=== PATIENT | female | born 1955 | race Caucasian/White ===

== ENCOUNTER 2017-08-15 12:13 | Emergency (ER) | payer MEDICAID ==
[2017-08-15 12:55] VITALS: TEMP 97.6; O2SAT 99; BMI 38.4
--- NOTE | 2017-08-15 13:12 | ED PDOC ---
Arrival/HPI - General Chief Complaint: Upper Extremity Problem/Injury Time Seen by Provider: 08/15/17 12:37 Historian: Patient - History of Present Illness Narrative History of Present Illness (Text): 08/15/17 13:03 A 62 year old female, whose past medical history includes a stented coronary artery, diabetes mellitus, hypercholestermia, and cervical radiculopathy, presents to the emergency department for a left upper extremity injury, which occurred 1 hr prior to arrival. The patient reports she slip and fell in her bathroom, she states it was a mechanical fall and denies any head injuries. The patient denies any fever, nausea, headaches, or any other complaints at this time. Time/Duration: 1 hour Symptom Onset: Sudden Symptom Course: Unchanged Activities at Onset: Light Context: Home Past Medical History - Provider Review Nursing Documentation Reviewed: Yes - Past History Past History: No Previous - Infectious Disease Hx of Infectious Diseases: None - Tetanus Immunization Tetanus Immunization: Up to Date - Cardiac Hx Cardiac Disorders: Yes Hx Hypertension: Yes Other/Comment: stents - Pulmonary Hx Respiratory Disorders: No - Neurological Hx Neurological Disorder: No - HEENT Hx HEENT Disorder: No - Renal Hx Renal Disorder: No - Endocrine/Metabolic Hx Endocrine Disorders: Yes Hx Diabetes Mellitus Type 2: Yes - Hematological/Oncological Hx Blood Disorders: No - Integumentary Hx Dermatological Disorder: No - Musculoskeletal/Rheumatological Hx Falls: Yes - Gastrointestinal Hx Gastrointestinal Disorders: No - Genitourinary/Gynecological Hx Genitourinary Disorders: No - Psychiatric Hx Psychophysiologic Disorder: No Hx Substance Use: No - Surgical History Hx Gastric Bypass Surgery: Yes (06/05/2016) Hx Orthopedic Surgery: Yes (Knee Arthroplasty R) Hx Tonsillectomy: Yes - Anesthesia Hx Anesthesia: Yes Hx Anesthesia Reactions: No Hx Malignant Hyperthermia: No - Suicidal Assessment Feels Threatened In Home Enviroment: No Family/Social History - Physician Review Nursing Documentation Reviewed: Yes Family/Social History: Unknown Family HX Smoking Status: Never Smoked Hx Alcohol Use: No Hx Substance Use: No Hx Substance Use Treatment: No Allergies/Home Meds Allergies/Adverse Reactions: Allergies No Known Allergies Allergy (Verified 03/31/13 22:07) Home Medications: Home Meds Medication Instructions Recorded Confirmed Insulin Glargine, Recombina 5 units SC DAILY 08/15/17 08/15/17 [Lantus] Physical Exam - Physical Exam Narrative Physical Exam (Text): 08/15/17 13:00 - Review of Systems Constitutional: Normal. absent: Fatigue, Weight Change, Fevers Eyes: Normal ENT: denies sore throat, denies tristhmus Respiratory: Normal. absent: SOB, Cough, Sputum Cardiovascular: absent: Chest Pain, Palpitations, Syncope Gastrointestinal: Normal. absent: Abdominal Pain, Diarrhea, Nausea, Vomiting Genitourinary: Normal. absent: Dysuria, Frequency, Hematuria Musculoskeletal: Normal. absent: Arthralgias, Back Pain, Neck Pain Skin: no rashes, no erythema Neurological: absent: Focal Weakness Endocrine: Normal Hemo/Lymphatic: Normal Psychiatric: No suicidal or homicidal ideations Physical exam Patient appears age appropriate in no distress, speaking full sentences without difficulty Head atraumatic. No nasal bone deformity or tenderness, no facial or jaw pain/ swelling. No neck midline tenderness, thoracic and lumbar spine with no midline tenderness. Pt moving b/l upper and lower extremities without difficulty, 5/5 strength, with full active and passive ROM. Distal neurovasc fully intact. Abd soft/nt/nd, no hematomas, no peritoneal signs. Neg. pelvic rock. No snuff box tenderness, no pain with axial loading of the thumb. - Systems Exam Head: Present: Atraumatic, Normocephalic Pupils: Present: PERRL Extroacular Muscles: Present: EOMI Conjunctiva: Present: Normal Mouth: Present: Moist Mucous Membranes Neck: Present: Normal Range of Motion. No: MIDLINE TENDERNESS, Paraspinal Tenderness Respiratory/Chest: Present: Clear to Auscultation, Good Air Exchange. No: Respiratory Distress, Accessory Muscle Use, Tachypneic Cardiovascular: Present: Regular Rate and Rhythm, Normal S1, S2, Peripheal Pulses Present. No: Murmurs Abdomen: Present: Normal Bowel Sounds. No: Tenderness, Distention, Peritoneal Signs, Rebound, Guarding Back: Present: Normal Inspection. No: Midline Tenderness, Paraspinal Tenderness Upper Extremity: Present: L. Shoulder, elbow, hand, and wrist full active and passive range with ROM and 5/5 strength. Normal Inspection. Distal neurovascular fully intact. No: Cyanosis, Edema. Lower Extremity: Present: Normal Inspection. No: Edema Neurological: Present: GCS=15, Speech Normal, cranial nerves II through XII fully intact with no cerebellar abnormality, neurosensory fully intact. No focal neurological deficits. Skin: Present: Warm, Dry, Normal Color. No: Rashes Lymphatic: Present: OX3, NI, NC Psychiatric: Present: Alert, Oriented x 3, Normal Insight, Normal Concentration Vital Signs Reviewed: Yes Vital Signs Temp Pulse Resp BP Pulse Ox 08/15/17 14:15 62 17 134/70 99 08/15/17 12:53 97.6 F 54 L 18 135/67 99 Temperature: Afebrile Blood Pressure: Normal Pulse: Bradycardic Respiratory Rate: Normal Appearance: Positive for: Well-Appearing, Non-Toxic, Comfortable Pain Distress: None Mental Status: Positive for: Alert and Oriented X 3 Medical Decision Making ED Course and Treatment: 08/15/17 13:23 Impression: A 62 year old female with left upper extremity pain due to fall. No acute findings on PE. Differential Diagnosis included but are not limited to: Sprain, strain, fracture Plan: -- Head CT -- Toradol -- Radiology: Left elbow, left shoulder, left wrist -- Reassess and disposition Progress Notes: 08/15/17 14:22 PROCEDURE: Left Wrist Radiographs. [employer] Consultant : Kayla Harding MD Report Date : 08/15/2017 14:02:12 FINDINGS: BONES:Bone alignment and mineralization are normal. There is no acute displaced fracture or bone destruction. There is an old fracture deformity in the styloid process of ulna. JOINTS:Normal. No dislocation. SOFT TISSUES:Normal. OTHER FINDINGS:None. IMPRESSION:No acute fracture or dislocation. PROCEDURE: Radiographs of the Left Shoulder [employer] Pay[employer] Consultant : Saul Lane MD Report Date : 08/15/2017 14:13:39 FINDINGS: BONES:Normal. No fracture. JOINTS:Normal. Glenohumeral and acromioclavicular joints preserved. No osteoarthritis. SOFT TISSUES:Normal. OTHER FINDINGS:None. IMPRESSION: Normal radiographs of the left shoulder. PROCEDURE: Radiographs of the left elbow. [employer] Pay[employer] Consultant : Saul Lane MD Report Date : 08/15/2017 14:12:37 FINDINGS: BONES:Normal. No fracture. JOINTS:Normal. No osteoarthritis. SOFT TISSUES:Normal. JOINT EFFUSION:None. OTHER FINDINGS:None IMPRESSION: Unremarkable radiographs of the left elbow. 08/15/17 15:11 had an extensive d/w pt that although xrays are negative for any acute bony abnormality, it is still very important to fu with pmd and ortho specialist for further w/u and testing such as MRI to r/o any ligamentous/tendenous/meniscal injury. Pt verbalized full understanding of above discussion. Pt states she understands to return to the ER right away for new or worsening symptoms or for inability to f/u with PMD or specialist as instructed. Patient states that she fully agrees with and understands discharge instructions. States that she agrees with the plan and disposition. Verbalized and repeated discharge instructions and plan. I have given the patient opportunity to ask any additional questions. 08/15/2017 14:45 CT HEAD WITHOUT CONTRAST. TECHNIQUE: Axial computed tomography images were obtained through the head/brain without intravenous contrast. Radiation dose: Total exam DLP = 941 mGy-cm. This CT exam was performed using one or more of the following dose reduction techniques: Automated exposure control, adjustment of the mA and/or kV according to patient size, and/or use of iterative reconstruction technique. FINDINGS: HEMORRHAGE: No intracranial hemorrhage. BRAIN: No mass effect or edema. No atrophy or chronic microvascular ischemic changes. VENTRICLES: Unremarkable. No hydrocephalus. CALVARIUM: Unremarkable. PARANASAL SINUSES: Unremarkable as visualized. No significant inflammatory changes. MASTOID AIR CELLS: Unremarkable as visualized. No inflammatory changes. OTHER FINDINGS: None. IMPRESSION: No acute findings Dictator: Saul Lane MD - RAD Interpretation Radiology Orders: 08/15/17 12:54 HEAD W/O CONTRAST [CT] Stat ELBOW LEFT 3 VIEWS ROUTINE [RAD] Stat SHOULDER LEFT [RAD] Stat WRIST, LEFT 3 VIEWS [RAD] Stat - Medication Orders Current Medication Orders: Discontinued Medications Ketorolac Tromethamine (Toradol) 30 mg IM STAT STA Stop: 08/15/17 12:55 Last Admin: 08/15/17 13:32 Dose: 30 mg MAR Pain Assessment Document 08/15/17 13:32 SF (Rec: 08/15/17 13:32 [place] [id number]) Pain Reassessment Is this a pain reassessment? Yes Sleep Is patient sleeping during reassessment? No Presence of Pain Presence of Pain Yes IM Administration Charges Document 08/15/17 13:32 SF (Rec: 08/15/17 13:32 [email or web address]) Injection Site MAR Injection Site Left Deltoid Charges for Administration # of IM Administrations 1 - Scribe Statement The provider has reviewed the documentation as recorded by the Scribe Na [place] Provider Scribe Attestation: All medical record entries made by the Scribe were at my direction and personally dictated by me. I have reviewed the chart and agree that the record accurately reflects my personal performance of the history, physical exam, medical decision making, and the department course for this patient. I have also personally directed, reviewed, and agree with the discharge instructions and disposition. Disposition/Present on Arrival - Present on Arrival Any Indicators Present on Arrival: No History of DVT/PE: No History of Uncontrolled Diabetes: No Urinary Catheter: No History of Decub. Ulcer: No History Surgical Site Infection Following: None - Disposition Have Diagnosis and Disposition been Completed?: Yes Diagnosis: Fall Disposition: HOME/ ROUTINE Disposition Time: 15:13 Patient Plan: Discharge Condition: GOOD Discharge Instructions (ExitCare): Fall Prevention for Older Adults (ED), Shoulder Sprain (ED) Additional Instructions: PLEASE RETURN TO THE EMERGENCY DEPARTMENT FOR NEW OR WORSENING SYMPTOMS. RETURN RIGHT AWAY IF YOU CANNOT FOLLOW UP WITH YOUR PRIMARY CARE DOCTOR, CLINIC, OR SPECIALIST IN 1-2 DAYS. Please take [id number] Motrin or Tylenol for pain per pharmacy instructions Referrals: Rancho Brink Jr., MD [Primary Care Provider] - Follow up with primary Vern Murdock MD [Staff Provider] - Follow up with primary Saul Gonzalez DO [Staff Provider] - Follow up with primary Forms: [employer] (Faroese)
--- NOTE | 2017-08-15 14:03 | RAD ---
PROCEDURE: Left Wrist Radiographs. HISTORY: Fall COMPARISON: None. FINDINGS: BONES: Bone alignment and mineralization are normal. There is no acute displaced fracture or bone destruction. There is an old fracture deformity in the styloid process of ulna. JOINTS: Normal. No dislocation. SOFT TISSUES: Normal. OTHER FINDINGS: None. IMPRESSION: No acute fracture or dislocation.
--- NOTE | 2017-08-15 14:14 | RAD ---
PROCEDURE: Radiographs of the left elbow. HISTORY: fall COMPARISON: No prior. FINDINGS: BONES: Normal. No fracture. JOINTS: Normal. No osteoarthritis. SOFT TISSUES: Normal. JOINT EFFUSION: None. OTHER FINDINGS: None IMPRESSION: Unremarkable radiographs of the left elbow.
--- NOTE | 2017-08-15 14:15 | RAD ---
PROCEDURE: Radiographs of the Left Shoulder HISTORY: fall COMPARISON: No prior. FINDINGS: BONES: Normal. No fracture. JOINTS: Normal. Glenohumeral and acromioclavicular joints preserved. No osteoarthritis. SOFT TISSUES: Normal. OTHER FINDINGS: None. IMPRESSION: Normal radiographs of the left shoulder.
--- NOTE | 2017-08-15 14:46 | CT ---
PROCEDURE: CT HEAD WITHOUT CONTRAST. HISTORY: fall COMPARISON: None available. TECHNIQUE: Axial computed tomography images were obtained through the head/brain without intravenous contrast. Radiation dose: Total exam DLP = 941 mGy-cm. This CT exam was performed using one or more of the following dose reduction techniques: Automated exposure control, adjustment of the mA and/or kV according to patient size, and/or use of iterative reconstruction technique. FINDINGS: HEMORRHAGE: No intracranial hemorrhage. BRAIN: No mass effect or edema. No atrophy or chronic microvascular ischemic changes. VENTRICLES: Unremarkable. No hydrocephalus. CALVARIUM: Unremarkable. PARANASAL SINUSES: Unremarkable as visualized. No significant inflammatory changes. MASTOID AIR CELLS: Unremarkable as visualized. No inflammatory changes. OTHER FINDINGS: None. IMPRESSION: No acute findings
[2017-08-15 15:19] VITALS: BP 134/70; PULSE 62; RESP 17
== END 2017-08-15 15:31 | disposition home or self-care (01) ==
LOC: ED 12:13
DX: Z04.3 Encounter for examination and observation following other accident (principal); W01.0XXA Fall on same level from slipping, tripping and stumbling without subsequent striking against object, initial encounter; Y93.E8 Activity, other personal hygiene; Y92.002 Bathroom of unspecified non-institutional (private) residence as the place of occurrence of the external cause
CPT/HCPCS: 70450; 73030; 73080; 73110; 96372; 99284; J1885

== ENCOUNTER 2017-11-20 09:57 | Emergency (ER) | payer MEDICAID ==
[2017-11-20 10:57] VITALS: BMI 32.9
[2017-11-20 11:23] VITALS: RESP 18; TEMP 98.1; O2SAT 100
--- NOTE | 2017-11-20 11:23 | ED PDOC ---
Arrival/HPI - General Chief Complaint: Lower Extremity Problem/Injury Time Seen by Provider: 11/20/17 11:10 Historian: Patient - History of Present Illness Narrative History of Present Illness (Text): 11/20/17 11:19 62 year old female, whose past medical history includes a stented coronary artery, presents to the emergency department complaining of big toe redness and pain that began yesterday morning. Patient reports 3 days ago she was not able to lift her right foot and yesterday night her middle finger began to feel numb and turned blue that have resolved. She states she takes aspirin everyday. Patient denies any fever, chills, chest pain, shortness of breath, nausea, vomiting, diarrhea, urinary symptoms, back pain, neck pain, headache, dizziness , or any other complaints. PMD: Dr. Gardiner Time/Duration: 24 hours Symptom Course: Unchanged, Resolved Activities at Onset: Light Context: Home Past Medical History - Provider Review Nursing Documentation Reviewed: Yes - Past History Past History: No Previous - Infectious Disease Hx of Infectious Diseases: None - Tetanus Immunization Tetanus Immunization: Up to Date - Reproductive Menopause: Yes - Cardiac Hx Cardiac Disorders: Yes Hx Hypertension: Yes Other/Comment: stents - Pulmonary Hx Respiratory Disorders: No - Neurological Hx Neurological Disorder: No - HEENT Hx HEENT Disorder: No - Renal Hx Renal Disorder: No - Endocrine/Metabolic Hx Endocrine Disorders: Yes Hx Diabetes Mellitus Type 2: Yes - Hematological/Oncological Hx Blood Disorders: No - Integumentary Hx Dermatological Disorder: No - Musculoskeletal/Rheumatological Hx Falls: Yes - Gastrointestinal Hx Gastrointestinal Disorders: No - Genitourinary/Gynecological Hx Genitourinary Disorders: No - Psychiatric Hx Psychophysiologic Disorder: No Hx Substance Use: No - Surgical History Hx Gastric Bypass Surgery: Yes (06/05/2016) Hx Orthopedic Surgery: Yes (Knee Arthroplasty R) Hx Tonsillectomy: Yes - Anesthesia Hx Anesthesia: Yes Hx Anesthesia Reactions: No Hx Malignant Hyperthermia: No - Suicidal Assessment Feels Threatened In Home Enviroment: No Family/Social History - Physician Review Nursing Documentation Reviewed: Yes Family/Social History: No Known Family HX Smoking Status: Never Smoked Hx Alcohol Use: No Hx Substance Use: No Hx Substance Use Treatment: No Allergies/Home Meds Allergies/Adverse Reactions: Allergies No Known Allergies Allergy (Verified 11/20/17 11:03) Home Medications: Home Meds Medication Instructions Recorded Confirmed Insulin Glargine, Recombina 5 units SC DAILY 08/15/17 11/20/17 [Lantus] Lisinopril [Zestril] 20 mg PO DAILY 11/20/17 11/20/17 Metoprolol Tartrate [Lopressor] 100 mg PO BID 11/20/17 11/20/17 Review of Systems - Review of Systems Constitutional: absent: Fevers, Other (Chills) Respiratory: absent: SOB Cardiovascular: absent: Chest Pain Gastrointestinal: absent: Diarrhea, Nausea, Vomiting Genitourinary Female: absent: Dysuria, Frequency, Hematuria Musculoskeletal: Other (right big toe redness and pain). absent: Back Pain, Neck Pain Neurological: Other (Numbness of the right middle finger). absent: Headache, Dizziness Physical Exam Vital Signs Reviewed: Yes Vital Signs Temp Pulse Resp BP Pulse Ox 11/20/17 10:57 98.1 F 63 18 110/64 100 Temperature: Afebrile Blood Pressure: Normal Pulse: Regular Respiratory Rate: Normal Appearance: Positive for: Well-Appearing, Non-Toxic, Comfortable Pain Distress: None Mental Status: Positive for: Alert and Oriented X 3 - Systems Exam Head: Present: Atraumatic, Normocephalic Pupils: Present: PERRL Extroacular Muscles: Present: EOMI Conjunctiva: Present: Normal Mouth: Present: Moist Mucous Membranes Neck: Present: Normal Range of Motion Respiratory/Chest: Present: Clear to Auscultation, Good Air Exchange. No: Respiratory Distress, Accessory Muscle Use Cardiovascular: Present: Regular Rate and Rhythm, Normal S1, S2. No: Murmurs Abdomen: Present: Normal Bowel Sounds. No: Tenderness, Distention, Peritoneal Signs Back: Present: Normal Inspection Upper Extremity: Present: Normal Inspection, Normal ROM, Other ([place] and warm hands). No: Cyanosis, Edema Lower Extremity: Present: Other ((+) Red inflamation to the right first MTD Joint. Tender to palpation). No: Edema Neurological: Present: GCS=15, CN II-XII Intact, Speech Normal Skin: Present: Warm, Dry, Normal Color. No: Rashes Psychiatric: Present: Alert, Oriented x 3, Normal Insight, Normal Concentration Medical Decision Making ED Course and Treatment: 11/20/17 11:19 Impression: 62 year old female presents complaining of right big toe pain that began yesterday morning. on PE shows red inflammation to the right first MTD Joint. Tender to palpation. Plan: -- Indocin -- Right foot 3 view x-ray -- Reassess and disposition Progress Notes: 11/20/17 11:32 - RAD Interpretation Radiology Orders: 11/20/17 11:15 FOOT RIGHT 3 VIEWS ROUTINE [RAD] Stat - Medication Orders Current Medication Orders: Discontinued Medications Indomethacin (Indocin) 25 mg PO STAT STA Stop: 11/20/17 11:17 Last Admin: 11/20/17 11:34 Dose: 25 mg MAR Pain Assessment Document 11/20/17 11:34 KIER PLEATER (Rec: 11/20/17 11:34 [facility] [id number]) Pain Reassessment Is this a pain reassessment? No Indomethacin (Indocin) 25 mg PO STAT STA Stop: 11/20/17 12:24 - Scribe Statement The provider has reviewed the documentation as recorded by the Danayibjian Cotton Provider Scribe Attestation: All medical record entries made by the Scribe were at my direction and personally dictated by me. I have reviewed the chart and agree that the record accurately reflects my personal performance of the history, physical exam, medical decision making, and the department course for this patient. I have also personally directed, reviewed, and agree with the discharge instructions and disposition. Disposition/Present on Arrival - Present on Arrival Any Indicators Present on Arrival: No History of DVT/PE: No History of Uncontrolled Diabetes: No Urinary Catheter: No History of Decub. Ulcer: No History Surgical Site Infection Following: None - Disposition Have Diagnosis and Disposition been Completed?: Yes Diagnosis: Gout attack, Peripheral vascular disease Disposition: HOME/ ROUTINE Disposition Time: 12:45 Condition: STABLE Additional Instructions: Return if any signs or symptoms become worse. see your doctor for further evaluation this week. Prescriptions: Naproxen [Naprosyn] 500 mg PO BID PRN #10 tablet PRN Reason: Pain, Moderate (4-7) Referrals: Belgica Gardiner [Primary Care Provider] - Follow up with primary Forms: [employer] (Belarusian)
--- NOTE | 2017-11-20 12:41 | RAD ---
PROCEDURE: Right Foot Radiographs. HISTORY: pain 1st MTP jt COMPARISON: None. FINDINGS: BONES: Normal. No fracture. JOINTS: Small bony fragments are seen on the medial and lateral side of the 1st PIP joint consistent with chronic degenerative changes. SOFT TISSUES: Normal. OTHER FINDINGS: None. IMPRESSION: Small bony fragments are seen on the medial and lateral side of the 1st PIP joint consistent with chronic degenerative changes.
[2017-11-20 12:54] VITALS: BP 110/66; PULSE 60
== END 2017-11-20 12:54 | disposition home or self-care (01) ==
LOC: ED 09:57
DX: M10.9 Gout, unspecified (principal); I73.9 Peripheral vascular disease, unspecified; E11.9 Type 2 diabetes mellitus without complications; I10 Essential (primary) hypertension; Z98.84 Bariatric surgery status

== ENCOUNTER 2017-12-30 09:26 | Emergency (ER) | payer MEDICAID ==
[2017-12-30 09:26] VITALS: BMI 32.9
--- NOTE | 2017-12-30 09:33 | ED PDOC ---
Arrival/HPI - General Time Seen by Provider: 12/30/17 09:31 Historian: Patient - History of Present Illness Narrative History of Present Illness (Text): 12/30/17 09:33 62 y/o female, pmh including htn/hypothryoidism/dm/Stented coronary artery/DM, nkda, c/o Past Medical History - Past History Past History: No Previous - Infectious Disease Hx of Infectious Diseases: None - Tetanus Immunization Tetanus Immunization: Up to Date - Cardiac Hx Cardiac Disorders: Yes Hx Hypertension: Yes Other/Comment: stents - Pulmonary Hx Respiratory Disorders: No - Neurological Hx Neurological Disorder: No - HEENT Hx HEENT Disorder: No - Renal Hx Renal Disorder: No - Endocrine/Metabolic Hx Endocrine Disorders: Yes Hx Diabetes Mellitus Type 2: Yes - Hematological/Oncological Hx Blood Disorders: No - Integumentary Hx Dermatological Disorder: No - Musculoskeletal/Rheumatological Hx Falls: Yes - Gastrointestinal Hx Gastrointestinal Disorders: No - Genitourinary/Gynecological Hx Genitourinary Disorders: No - Psychiatric Hx Psychophysiologic Disorder: No Hx Substance Use: No - Surgical History Hx Gastric Bypass Surgery: Yes (06/05/2016) Hx Orthopedic Surgery: Yes (Knee Arthroplasty R) Hx Tonsillectomy: Yes - Anesthesia Hx Anesthesia: Yes Hx Anesthesia Reactions: No Hx Malignant Hyperthermia: No - Suicidal Assessment Feels Threatened In Home Enviroment: No Family/Social History Smoking Status: Never Smoked Hx Alcohol Use: No Hx Substance Use: No Hx Substance Use Treatment: No Allergies/Home Meds Allergies/Adverse Reactions: Allergies No Known Allergies Allergy (Verified 11/20/17 11:03) Home Medications: Home Meds Medication Instructions Recorded Confirmed Insulin Glargine, Recombina 5 units SC DAILY 08/15/17 11/20/17 [Lantus] Lisinopril [Zestril] 20 mg PO DAILY 11/20/17 11/20/17 Metoprolol Tartrate [Lopressor] 100 mg PO BID 11/20/17 11/20/17 Disposition/Present on Arrival - Present on Arrival History of DVT/PE: No History of Uncontrolled Diabetes: No Urinary Catheter: No History Surgical Site Infection Following: None - Disposition
[2017-12-30 09:37] VITALS: TEMP 98.3; O2SAT 100
--- NOTE | 2017-12-30 09:51 | ED PDOC ---
Arrival/HPI - General Time Seen by Provider: 12/30/17 09:31 Historian: Patient - History of Present Illness Narrative History of Present Illness (Text): 12/30/17 09:51 A 62 year old female, whose past medical history includes hypertension, presents to the emergency department complaining of chest tightness, shortness of breath and mild cough that started two days ago. Patient denies any other complaints at this time. Time/Duration: Other (2 days) Symptom Onset: Sudden Symptom Course: Unchanged Activities at Onset: Rest Context: Home Past Medical History - Provider Review Nursing Documentation Reviewed: Yes - Past History Past History: No Previous - Infectious Disease Hx of Infectious Diseases: None - Tetanus Immunization Tetanus Immunization: Up to Date - Cardiac Hx Cardiac Disorders: Yes Hx Hypertension: Yes Other/Comment: stents - Pulmonary Hx Respiratory Disorders: No - Neurological Hx Neurological Disorder: No - HEENT Hx HEENT Disorder: No - Renal Hx Renal Disorder: No - Endocrine/Metabolic Hx Endocrine Disorders: Yes Hx Diabetes Mellitus Type 2: Yes - Hematological/Oncological Hx Blood Disorders: No - Integumentary Hx Dermatological Disorder: No - Musculoskeletal/Rheumatological Hx Falls: Yes - Gastrointestinal Hx Gastrointestinal Disorders: No - Genitourinary/Gynecological Hx Genitourinary Disorders: No - Psychiatric Hx Psychophysiologic Disorder: No Hx Substance Use: No - Surgical History Hx Gastric Bypass Surgery: Yes (06/05/2016) Hx Orthopedic Surgery: Yes (Knee Arthroplasty R) Hx Tonsillectomy: Yes - Anesthesia Hx Anesthesia: Yes Hx Anesthesia Reactions: No Hx Malignant Hyperthermia: No - Suicidal Assessment Feels Threatened In Home Enviroment: No Family/Social History - Physician Review Nursing Documentation Reviewed: Yes Family/Social History: No Known Family HX Smoking Status: Never Smoked Hx Alcohol Use: No Hx Substance Use: No Hx Substance Use Treatment: No Allergies/Home Meds Allergies/Adverse Reactions: Allergies No Known Allergies Allergy (Verified 11/20/17 11:03) Home Medications: Home Meds Medication Instructions Recorded Confirmed Insulin Glargine, Recombina 5 units SC DAILY 08/15/17 11/20/17 [Lantus] Lisinopril [Zestril] 20 mg PO DAILY 11/20/17 11/20/17 Metoprolol Tartrate [Lopressor] 100 mg PO BID 11/20/17 11/20/17 Review of Systems - Physician Review All systems were reviewed & negative as marked: Yes - Review of Systems Respiratory: SOB, Cough Cardiovascular: Other (chest tightness) Physical Exam Vital Signs Reviewed: Yes Vital Signs Temp Pulse Resp BP Pulse Ox 12/30/17 12:09 78 17 116/76 100 12/30/17 09:37 98.3 F 84 18 151/64 H 100 Temperature: Afebrile Blood Pressure: Hypertensive Pulse: Regular Respiratory Rate: Normal Appearance: Positive for: Well-Appearing, Non-Toxic, Comfortable Pain Distress: None Mental Status: Positive for: Alert and Oriented X 3 - Systems Exam Head: Present: Atraumatic, Normocephalic Pupils: Present: PERRL Extroacular Muscles: Present: EOMI Conjunctiva: Present: Normal Mouth: Present: Moist Mucous Membranes Pharnyx: Present: ERYTHEMA Neck: Present: Normal Range of Motion Respiratory/Chest: Present: Clear to Auscultation, Good Air Exchange. No: Respiratory Distress, Accessory Muscle Use Cardiovascular: Present: Regular Rate and Rhythm, Normal S1, S2. No: Murmurs Abdomen: Present: Normal Bowel Sounds. No: Tenderness, Distention, Peritoneal Signs Back: Present: Normal Inspection Upper Extremity: Present: Normal Inspection. No: Cyanosis, Edema Lower Extremity: Present: Normal Inspection. No: Edema Neurological: Present: GCS=15, CN II-XII Intact, Speech Normal Skin: Present: Warm, Dry, Normal Color. No: Rashes Psychiatric: Present: Alert, Oriented x 3, Normal Insight, Normal Concentration Medical Decision Making ED Course and Treatment: 12/30/17 09:49 Impression: A 62 year old female with chest tightness, shortness of breath and cough. Plan: -- EKG -- chest xray -- labs -- Urinalysis -- Reassess and disposition Prior Visits: Notes and results from previous visits were reviewed. Patient was last seen in the emergency department on 11/20/17 for evaluation of right big toe redness and pain. Progress Notes: EKG: Ordered, reviewed, and independently interpreted the EKG. Rate : 89 BPM Rhythm : NSR Interpretation : No ST/T wave changes 12/30/17 10:33 chest xray Creator : Saul Lane MD IMPRESSION: No active disease. 12/30/17 11:52 Offered admission but patient declines. Pain is atypical, but due to patient's history of CAD, discussed numerous times for admission. Patient will return to the emergency department if symptoms worsen. - Lab Interpretations Lab Results: 12/30/17 09:45 12/30/17 09:50 Lab Results 12/30/17 11:00: Influenza Typ A,B (EIA) Negative for flu a/b 12/30/17 09:50: Sodium 141, Potassium 4.7, Chloride 108 H, Carbon Dioxide 23, Anion Gap 15, BUN 28 H, Creatinine 1.1, Est GFR ( Amer) > 60, Est GFR ( Non-Af Amer) 50, Random Glucose 205 H, Calcium 9.2, Magnesium 1.5 L, Total Bilirubin 0.6, AST 19, ALT 24, Alkaline Phosphatase 62, Lactate Dehydrogenase 367, Total Creatine Kinase 52, Troponin I < 0.01, NT-Pro-B Natriuret Pep 79.7, Total Protein 6.4, Albumin 3.6, Globulin 2.8, Albumin/Globulin Ratio 1.3 12/30/17 09:50: Urine Color Yellow, Urine Appearance Slight-cloudy, Urine pH 6.0 , Ur Specific [place] >= 1.030, Urine Protein Negative, Urine Glucose (UA) Negative, Urine Ketones Negative, Urine Blood Negative, Urine Nitrate Negative, Urine Bilirubin Negative, Urine Urobilinogen 0.2, Ur Leukocyte Esterase Moderate H, Urine RBC 0 - 2, Urine WBC 20 - 25, Ur Epithelial Cells 6 - 8, Urine Bacteria Many, Urine Other Uyeast 12/30/17 09:50: PT 12.4, INR 1.08, APTT 28.7 12/30/17 09:45: WBC 7.2 D, RBC 4.22, Hgb 11.1 L, Hct 34.2 L, MCV 81.0, MCH 26.3 , MCHC 32.5, RDW 14.0, Plt Count 150, MPV 10.1, Gran % 58.7, Lymph % (Auto) 33.3 , [place] % (Auto) 5.3, Eos % (Auto) 2.4, Baso % (Auto) 0.3, Gran # 4.23, Lymph # ( Auto) 2.4, [place] # (Auto) 0.4, Eos # (Auto) 0.2, Baso # (Auto) 0.02 I have reviewed the lab results: Yes - RAD Interpretation Radiology Orders: 12/30/17 09:45 CHEST PORTABLE [RAD] Stat - EKG Interpretation Interpreted by ED Physician: Yes Type: 12 lead EKG - Scribe Statement The provider has reviewed the documentation as recorded by the Vincent Martin Provider Scribe Attestation: All medical record entries made by the Scribe were at my direction and personally dictated by me. I have reviewed the chart and agree that the record accurately reflects my personal performance of the history, physical exam, medical decision making, and the department course for this patient. I have also personally directed, reviewed, and agree with the discharge instructions and disposition. Disposition/Present on Arrival - Present on Arrival Any Indicators Present on Arrival: No History of DVT/PE: No History of Uncontrolled Diabetes: No Urinary Catheter: No History Surgical Site Infection Following: None - Disposition Have Diagnosis and Disposition been Completed?: Yes Diagnosis: Chest pain, UTI (urinary tract infection), Influenza-like illness Disposition: HOME/ ROUTINE Disposition Time: 12:00 Condition: STABLE Discharge Instructions (ExitCare): Urinary Tract Infections in Adults, Chest Pain, Viral Syndrome (DC), Chest Pain (ED) Additional Instructions: you are declining observation in the hospital at this time, however you are able to return to er with any worsening symptoms or concerns. Prescriptions: Cefpodoxime [Vantin] 100 mg PO BID #14 tab Oseltamivir Phosphate [Tamiflu] 75 mg PO BID #10 capsule Referrals: [facility] [Outside] - Follow up with primary [facility] [Outside] - Follow up with primary [facility], [Non-Staff] - Follow up with primary Zurdo Zuniga MD [Staff Provider] - Follow up with primary Forms: [employer] ([place])
[2017-12-30 10:11] LABS: BASO # 0.02 K/mm3 (0.0-2.0); BASO % 0.3 % (0.0-3.0); EOS # 0.2 (0.0-0.7); EOS % 2.4 % (1.5-5.0); GRAN # 4.23 (1.4-6.5); GRAN % 58.7 % (50.0-68.0); HEMOGLOBIN 11.1 g/dL (12.0-16.0); LYMPH # 2.4 (1.2-3.4); LYMPH % 33.3 % (22.0-35.0); MEAN CORPUSCULAR HEMOGLOBIN 26.3 pg (25.0-35.0); MEAN CORPUSCULAR HGB CONC 32.5 g/dl (31.0-37.0); MEAN PLATELET VOLUME 10.1 fl (7.0-11.0); MONO # 0.4 (0.1-0.6); MONO % 5.3 % (1.0-6.0); RBC 4.22 10^6/uL (3.5-6.1); WHITE BLOOD COUNT 7.2 10^3/ul (4.5-11.0)
[2017-12-30 10:13] LABS: URINE BILIRUBIN NEGATIVE (NEGATIVE); URINE BLOOD NEGATIVE (NEGATIVE); URINE GLUCOSE (UA) NEGATIVE (NEGATIVE); URINE LEUKOCYTE ESTERASE MODERATE Leu/uL (NEGATIVE); URINE NITRATE NEGATIVE (NEGATIVE); URINE PROTEIN NEGATIVE mg/dL (<30 mg/dL); URINE UROBILINOGEN 0.2 E.U./dL (<1 E.U./dL)
[2017-12-30 10:22] LABS: INR 1.08 (0.93-1.08); PARTIAL THROMBOPLASTIN TIME 28.7 Seconds (25.1-36.5); PROTHROMBIN TIME 12.4 SECONDS (9.4-12.5)
[2017-12-30 10:25] LABS: ALB/GLOB RATIO 1.3 (1.1-1.8); ALBUMIN 3.6 g/dL (3.0-4.8); ALT/SGPT 24 U/L (7-56); AST/SGOT 19 U/L (14-36); BLOOD UREA NITROGEN 28 mg/dL (7-21); CALCIUM 9.2 mg/dL (8.4-10.5); GFR AFRICAN-AMERICAN > 60; GFR NON-AFRICAN AMERICAN 50; MAGNESIUM 1.5 mg/dL (1.7-2.2)
--- NOTE | 2017-12-30 10:29 | RAD ---
HISTORY: cp COMPARISON: 12/05/2015 FINDINGS: LUNGS: No active pulmonary disease. PLEURA: No significant pleural effusion identified, no pneumothorax apparent. CARDIOVASCULAR: Normal. OSSEOUS STRUCTURES: No significant abnormalities. VISUALIZED UPPER ABDOMEN: Normal. OTHER FINDINGS: None. IMPRESSION: No active disease.
[2017-12-30 10:33] LABS: URINE APPEARANCE SLIGHT-CLOUDY (CLEAR); URINE COLOR YELLOW (YELLOW)
[2017-12-30 10:39] LABS: B-TYPE NATRIURETIC PEPTIDE 79.7 pg/mL (0-450); TROPONIN I < 0.01 ng/mL
[2017-12-30 10:46] LABS: URINE BACTERIA MANY (NEG); URINE RBC 0 - 2 /hpf (0-2); URINE WBC 20 - 25 /hpf (0-6)
[2017-12-30 12:10] VITALS: BP 116/76; PULSE 78; RESP 17
--- NOTE | 2017-12-30 21:26 | CARD ---
APPROVED REPORT EKG Measurement Heart [id number] <Conclusion> Normal sinus rhythm Normal ECG
== END 2017-12-30 12:10 | disposition home or self-care (01) ==
LOC: ED 09:26
DX: N39.0 Urinary tract infection, site not specified (principal); J11.1 Influenza due to unidentified influenza virus with other respiratory manifestations; R07.9 Chest pain, unspecified; I10 Essential (primary) hypertension; E11.9 Type 2 diabetes mellitus without complications; Z98.84 Bariatric surgery status

== ENCOUNTER 2018-04-06 18:02 | Emergency (ER) | payer MEDICAID ==
[2018-04-06 18:02] VITALS: BMI 32.9
[2018-04-06 18:23] VITALS: RESP 18; TEMP 99
--- NOTE | 2018-04-06 18:53 | ED PDOC ---
Arrival/HPI - General Chief Complaint: Lower Extremity Problem/Injury Time Seen by Provider: 04/06/18 18:52 Historian: Patient - History of Present Illness Narrative History of Present Illness (Text): 04/06/18 18:53 This 63 year old female, whose past medical history includes a stented coronary artery, diabetes mellitus, hypercholestermia, hypothyroidism, and cervical radiculopathy, presents to the emergency department c/o right foot redness x 2 days. Patient stated redness has been progressively worsen today. Patient noted feeling febrile, with chills. Patient is concern she may have a foot infection. Patient feels swelling involving her right mullins. Patient denies SOB , CP, abdominal pain, urinary symptoms, dizziness, RENEE, weakness, paresthesias, recent travel, sick contact, recent surgery, or trauma. Time/Duration: Other (2 days) Quality: Aching Context: Home Past Medical History - Provider Review Nursing Documentation Reviewed: Yes - Past History Past History: No Previous - Infectious Disease Hx of Infectious Diseases: None - Tetanus Immunization Tetanus Immunization: Up to Date - Reproductive Menopause: Yes - Cardiac Hx Cardiac Disorders: Yes Hx Hypertension: Yes Other/Comment: stents - Pulmonary Hx Respiratory Disorders: No - Neurological Hx Neurological Disorder: No - HEENT Hx HEENT Disorder: No - Renal Hx Renal Disorder: No - Endocrine/Metabolic Hx Endocrine Disorders: Yes Hx Diabetes Mellitus Type 2: Yes - Hematological/Oncological Hx Blood Disorders: No - Integumentary Hx Dermatological Disorder: No - Musculoskeletal/Rheumatological Hx Falls: Yes - Gastrointestinal Hx Gastrointestinal Disorders: No - Genitourinary/Gynecological Hx Genitourinary Disorders: No - Psychiatric Hx Psychophysiologic Disorder: No Hx Substance Use: No - Surgical History Hx Gastric Bypass Surgery: Yes (06/05/2016) Hx Orthopedic Surgery: Yes (Knee Arthroplasty R) Hx Tonsillectomy: Yes - Anesthesia Hx Anesthesia: Yes Hx Anesthesia Reactions: No Hx Malignant Hyperthermia: No - Suicidal Assessment Feels Threatened In Home Enviroment: No Family/Social History - Physician Review Nursing Documentation Reviewed: Yes Family/Social History: Other (noncontributory) Smoking Status: Never Smoked Hx Alcohol Use: No Hx Substance Use: No Hx Substance Use Treatment: No Allergies/Home Meds Allergies/Adverse Reactions: Allergies No Known Allergies Allergy (Verified 04/06/18 18:23) Home Medications: Home Meds Medication Instructions Recorded Confirmed Insulin Glargine, Recombina 5 units SC DAILY 08/15/17 04/06/18 [Lantus] Lisinopril [Zestril] 20 mg PO DAILY 11/20/17 04/06/18 Metoprolol Tartrate [Lopressor] 100 mg PO BID 11/20/17 04/06/18 Review of Systems - Review of Systems Constitutional: Normal. absent: Fatigue, Weight Change, Fevers Eyes: Normal ENT: Normal Respiratory: Normal Cardiovascular: Normal Gastrointestinal: Normal Genitourinary Female: Normal Musculoskeletal: Other (see hpi) Skin: Normal Neurological: Normal Endocrine: Normal Hemo/Lymphatic: Normal Psychiatric: Normal Physical Exam Vital Signs Temp Pulse Resp BP Pulse Ox 04/06/18 18:18 99 F 68 18 127/87 99 Temperature: Afebrile Blood Pressure: Normal Pulse: Regular Respiratory Rate: Normal Appearance: Positive for: Well-Appearing, Non-Toxic, Comfortable Pain Distress: None Mental Status: Positive for: Alert and Oriented X 3 - Systems Exam Head: Present: Atraumatic, Normocephalic Pupils: Present: PERRL Extroacular Muscles: Present: EOMI Conjunctiva: Present: Normal Mouth: Present: Moist Mucous Membranes Neck: Present: Normal Range of Motion. No: Meningeal Signs, MIDLINE TENDERNESS , Paraspinal Tenderness Respiratory/Chest: Present: Clear to Auscultation, Good Air Exchange. No: Respiratory Distress, Accessory Muscle Use Cardiovascular: Present: Regular Rate and Rhythm, Normal S1, S2. No: Murmurs Abdomen: No: Tenderness, Distention, Peritoneal Signs Back: Present: Normal Inspection. No: CVA Tenderness Upper Extremity: Present: Normal Inspection, Normal ROM, NORMAL PULSES. No: Cyanosis, Edema Lower Extremity: Present: CALF TENDERNESS, NORMAL PULSES, Normal ROM, Erythema ( (+) right dorsal foot erythema, warmth to touch, involving distal lower leg), Neurovascularly Intact, Capillary Refill < 2 s. No: Edema Neurological: Present: GCS=15, CN II-XII Intact, Speech Normal, Motor Func Grossly Intact, Normal Sensory Function, Normal Cerebellar Funct, Gait Normal Skin: Present: Warm, Dry, Normal Color. No: Rashes Psychiatric: Present: Alert, Oriented x 3, Normal Insight, Normal Concentration Medical Decision Making ED Course and Treatment: 05/27/18 20:29 Re-evaluation. Patient feels better. Discussed results and plan with patient who expresses understanding. All questions answered and there is agreement with the plan to discharge home with instructions. Patient stable for discharge. Return if symptoms persist or worsen Re-evaluation Time: 20:29 Reassessment Condition: Re-examined, Improved - Lab Interpretations Lab Results: 04/06/18 19:00 04/06/18 19:00 Lab Results 04/06/18 20:00: Uric Acid 5.2 04/06/18 19:00: PT 11.9, INR 1.04, APTT 27.7 04/06/18 19:00: pO2 26 L, VBG pH 7.29 L, VBG pCO2 57.0, VBG HCO3 27.4, VBG Total CO2 29.1 H, VBG O2 Sat (Calc) 46.1, VBG Base Excess -0.3 L, VBG Potassium 4.3, Sodium 142.0, Chloride 111.0 H, Glucose 196 H, Lactate 0.8, FiO2 21.0, Venous Blood Potassium 4.3 04/06/18 19:00: Sodium 144, Chloride 109 H, Potassium 4.3, Carbon Dioxide 25, Anion Gap 15, BUN 27 H, Creatinine 1.2, Est GFR ( Amer) 55, Est GFR (Non- Af Amer) 45, Random Glucose 182 H, Calcium 8.9, Total Bilirubin 0.5, AST 16, ALT 16, Alkaline Phosphatase 61, Total Protein 6.6, Albumin 3.8, Globulin 2.8, Albumin/Globulin Ratio 1.4 04/06/18 19:00: Urine Color Yellow, Urine Appearance Clear, Urine pH 6.0, Ur Specific [place] >= 1.030, Urine Protein Trace H, Urine Glucose (UA) Negative, Urine Ketones Trace H, Urine Blood Negative, Urine Nitrate Negative, Urine Bilirubin Negative, Urine Urobilinogen 0.2, Ur Leukocyte Esterase Moderate H, Urine RBC 0 - 2, Urine WBC 20 - 25, Ur Epithelial Cells 10 - 12, Amorphous Sediment Few, Urine Bacteria Large, Urine Other Uyeast 04/06/18 19:00: WBC 5.3 D, RBC 3.97, Hgb 10.3 L, Hct 32.0 L, MCV 80.6, MCH 25.9 , MCHC 32.2, RDW 13.7, Plt Count 167, MPV 10.1, Gran % 50.5, Lymph % (Auto) 42.7 H, [place] % (Auto) 4.5, Eos % (Auto) 1.9, Baso % (Auto) 0.4, Gran # 2.68, Lymph # (Auto) 2.3, [place] # (Auto) 0.2, Eos # (Auto) 0.1, Baso # (Auto) 0.02, ESR Pending I have reviewed the lab results: Yes Interpretation: Abnormal lab values - RAD Interpretation Narrative RAD Interpretations (Text): 04/06/18 20:27 CXR: NAD 04/06/18 20:29 Venous doppler: No DVT as per ultrasound Radiology Orders: 04/06/18 18:55 FOOT RIGHT 3 VIEWS ROUTINE [RAD] Stat 04/06/18 18:57 DUPLEX LOWER EXTRM VEIN RIGHT [US] Stat 04/06/18 19:40 CHEST ONE VIEW [RAD] Stat - Medication Orders Current Medication Orders: Discontinued Medications Sodium Chloride (Sodium Chloride 0.9%) 1,000 mls @ 999 mls/hr IV .Q1H1M STA Stop: 04/06/18 19:55 Last Admin: 04/06/18 19:33 Dose: 999 mls/hr eMAR Start Stop Document 04/06/18 19:33 AD (Rec: 04/06/18 19:33 AD [id number]) Intravenous Solution Start Date 04/06/18 Start Time 19:33 Vancomycin HCl (Vancomycin 1gm) 1 gm in 250 mls @ 167 mls/hr IVPB STAT STA PRN Reason: Protocol Stop: 04/06/18 20:23 Piperacillin Sod/Tazobactam Sod (Zosyn 4.5 Gm In Ns 100ml) 4.5 gm in 100 mls @ 200 mls/hr IVPB STAT STA PRN Reason: Protocol Stop: 04/06/18 19:23 Last Admin: 04/06/18 19:33 Dose: 200 mls/hr eMAR Start Stop Document 04/06/18 19:33 AD (Rec: 04/06/18 19:33 AD [id number]) Intravenous Solution Start Date 04/06/18 Start Time 19:33 Disposition/Present on Arrival - Present on Arrival Any Indicators Present on Arrival: No History of DVT/PE: No History of Uncontrolled Diabetes: No Urinary Catheter: No History of Decub. Ulcer: No History Surgical Site Infection Following: None - Disposition Have Diagnosis and Disposition been Completed?: Yes Diagnosis: Cellulitis, Urinary tract infection Disposition: HOME/ ROUTINE Disposition Time: 20:31 Patient Plan: Discharge Condition: GOOD Discharge Instructions (ExitCare): Cellulitis (ED), Urinary Tract Infection, Adult (DC) Additional Instructions: Call private doctor for follow up visit in 1-2 days. Take medication as instructed. Return to emergency if symptoms worsen, fever, or increasing pain. Drink plenty of fluids and rest. Prescriptions: Cephalexin [Keflex] 500 mg PO QID #28 capsule Famotidine [Pepcid] 40 mg PO DAILY #10 tablet Indomethacin [Indocin] 50 mg PO TID PRN #15 cap PRN Reason: Pain, Severe (8-10) Referrals: Belgica Gardiner [Primary Care Provider] - Follow up with primary Forms: [facility] (Vietnamese)
[2018-04-06] MEDS ORDERED: Piperacill/Tazo 4.5gm in NS 4.5 GM/100 ML BAG IVPB STA (18:54)
[2018-04-06] MEDS ORDERED: Vancomycin 1gm in NS 250ml 1 GM/250 ML BAG IVPB STA (18:54)
[2018-04-06] MEDS ORDERED: Sodium Chloride 0.9% 1,000 ML IV STA (18:55)
[2018-04-06 19:42] LABS: VENOUS BLOOD GAS BASE EXCESS -0.3 mmol/L (0.0-2.0); VENOUS BLOOD GAS PO2 26 mm/Hg (30-55); VENOUS BLOOD PH 7.29 (7.32-7.43)
[2018-04-06 19:49] LABS: ALB/GLOB RATIO 1.4 (1.1-1.8); ALBUMIN 3.8 g/dL (3.0-4.8); CALCIUM 8.9 mg/dL (8.4-10.5)
[2018-04-06 19:58] LABS: URINE BILIRUBIN NEGATIVE (NEGATIVE); URINE BLOOD NEGATIVE (NEGATIVE); URINE GLUCOSE (UA) NEGATIVE (NEGATIVE); URINE LEUKOCYTE ESTERASE MODERATE Leu/uL (NEGATIVE); URINE PROTEIN TRACE mg/dL (<30 mg/dL); URINE UROBILINOGEN 0.2 E.U./dL (<1 E.U./dL)
[2018-04-06 20:00] LABS: BASO # 0.02 K/mm3 (0.0-2.0); BASO % 0.4 % (0.0-3.0); EOS # 0.1 (0.0-0.7); EOS % 1.9 % (1.5-5.0); GRAN # 2.68 (1.4-6.5); GRAN % 50.5 % (50.0-68.0); HEMOGLOBIN 10.3 g/dL (12.0-16.0); LYMPH # 2.3 (1.2-3.4); LYMPH % 42.7 % (22.0-35.0); MEAN CELL VOLUME 80.6 fl (80.0-105.0); MEAN CORPUSCULAR HEMOGLOBIN 25.9 pg (25.0-35.0); MEAN CORPUSCULAR HGB CONC 32.2 g/dl (31.0-37.0); MEAN PLATELET VOLUME 10.1 fl (7.0-11.0); MONO # 0.2 (0.1-0.6); MONO % 4.5 % (1.0-6.0); RBC 3.97 10^6/uL (3.5-6.1); RED CELL DISTRIBUTION WIDTH 13.7 % (11.5-14.5); URINE APPEARANCE CLEAR (CLEAR); URINE COLOR YELLOW (YELLOW); WHITE BLOOD COUNT 5.3 10^3/ul (4.5-11.0)
[2018-04-06 20:09] LABS: INR 1.04 (0.93-1.08); PROTHROMBIN TIME 11.9 SECONDS (9.4-12.5); URINE AMORPHOUS SEDIMENT FEW; URINE BACTERIA LARGE (NEG); URINE RBC 0 - 2 /hpf (0-2); URINE WBC 20 - 25 /hpf (0-6)
[2018-04-06 20:10] LABS: PARTIAL THROMBOPLASTIN TIME 27.7 Seconds (25.1-36.5)
[2018-04-06 20:53] VITALS: BP 123/78; PULSE 70; O2SAT 100
--- NOTE | 2018-04-07 09:44 | RAD ---
PROCEDURE: CHEST RADIOGRAPH, 1 VIEW HISTORY: Chills/fever COMPARISON: Comparison made with prior study 12/30/2017 FINDINGS: LUNGS: Clear. PLEURA: No pneumothorax or pleural fluid seen. CARDIOVASCULAR: Normal. OSSEOUS STRUCTURES: No significant abnormalities. VISUALIZED UPPER ABDOMEN: Normal. OTHER FINDINGS: None. IMPRESSION: No active disease.
--- NOTE | 2018-04-07 10:55 | RAD ---
PROCEDURE: Right Foot Radiographs. HISTORY: Pain. Rule out osteomyelitis COMPARISON: None. FINDINGS: BONES: No evidence of acute displaced fracture nor dislocation. The osseous structures appear intact. No obvious cortical destructive changes. . Small posterior and plantar surface calcaneal enthesophytes are present. 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 Mild degenerative osteoarthritis tibiotalar articulation. There is a tiny corticated bony density within the soft tissues subjacent to the inferior tip of the medial malleolus which could represent some old posttraumatic mineralization or possibly old unfused avulsion injury SOFT TISSUES: There appears to be mild diffuse circumferential soft tissue swelling at the level of the metatarsals ; findings are nonspecific ; rule out posttraumatic, infectious (cellulitis) or vascular etiologies. OTHER FINDINGS: None. IMPRESSION: No evidence of acute displaced fracture nor dislocation. No obvious cortical destructive changes however the possibility of a very early osteomyelitis not excluded. The clinically indicated consider followup MRI. Degenerative changes 1st MTP and DIP joints. Mild the circumferential soft tissue swelling at the level of the metatarsals; rule out posttraumatic infectious/inflammatory or vascular etiologies.
--- NOTE | 2018-04-07 12:44 | US ---
PROCEDURE: Right lower extremity venous US HISTORY: Leg pain and swelling. Evaluate for DVT. PHYSICIAN(S): Ilia Murray M.D. TECHNIQUE: Duplex sonography and color-flow Doppler with graded compression were used to evaluate the deep venous system of the right lower extremity. FINDINGS: The visualized deep venous system of the right lower extremity is sonographically normal and compressible. Normal waveforms and augmentation are seen. There is no sonographic evidence for deep venous thrombosis in the visualized segments of the right lower extremity. IMPRESSION: 1. No sonographic evidence for deep venous thrombosis in the visualized segments of the right lower extremity.
== END 2018-04-06 20:53 | disposition home or self-care (01) ==
LOC: ED 18:02
DX: N39.0 Urinary tract infection, site not specified (principal); L03.90 Cellulitis, unspecified; E11.9 Type 2 diabetes mellitus without complications; E03.9 Hypothyroidism, unspecified; E78.00 Pure hypercholesterolemia, unspecified; I10 Essential (primary) hypertension
CPT/HCPCS: 71045; 73630; 80053; 81001; 82803; 84550; 85025; 85610; 85651; 85730; 87040; 87086; 93971; 96374; 99283; J2543; J7040

== ENCOUNTER 2018-05-12 16:22 | Emergency (ER) | payer MEDICAID ==
[2018-05-12 16:22] VITALS: BMI 32.9
--- NOTE | 2018-05-12 18:11 | ED PDOC ---
Arrival/HPI - General Chief Complaint: Chest Pain Time Seen by Provider: 05/12/18 17:09 Historian: Patient - History of Present Illness Narrative History of Present Illness (Text): 05/12/18 18:04 Pt is a 63 yr old female with PMH of DMII and CAD (s/p stent placement) who presents today for chest tightness with subjective fever, right-sided headache and dry cough for the past 3 days. Pt says that she has diaphragmatic pain, pointing to her epigastrum, and states it feels worse in supine and on exertion. FS today was 130 and she reports taking her medications. Denies nausea , vomiting, abdominal pain, diarrhea, recent travel, recent illness, change in bladder or bowel or any other complaints. PMD is Ann Woodson Time/Duration: < week Symptom Onset: Sudden Symptom Course: Unchanged Quality: Aching, Pressure, Tightness Severity Level: Moderate Context: Home Past Medical History - Provider Review Nursing Documentation Reviewed: Yes - Travel History Have you recently traveled outside [place] w/in the past 3 mons?: No - Past History Past History: No Previous - Infectious Disease Hx of Infectious Diseases: None - Tetanus Immunization Tetanus Immunization: Up to Date - Cardiac Hx Cardiac Disorders: Yes Hx Hypertension: Yes Other/Comment: stents - Pulmonary Hx Respiratory Disorders: No - Neurological Hx Neurological Disorder: No - HEENT Hx HEENT Disorder: No - Renal Hx Renal Disorder: No - Endocrine/Metabolic Hx Endocrine Disorders: Yes Hx Diabetes Mellitus Type 2: Yes - Hematological/Oncological Hx Blood Disorders: No - Integumentary Hx Dermatological Disorder: No - Musculoskeletal/Rheumatological Hx Falls: Yes - Gastrointestinal Hx Gastrointestinal Disorders: No - Genitourinary/Gynecological Hx Genitourinary Disorders: No - Psychiatric Hx Psychophysiologic Disorder: No Hx Substance Use: No - Surgical History Hx Gastric Bypass Surgery: Yes (06/05/2016) Hx Orthopedic Surgery: Yes (Knee Arthroplasty R) Hx Tonsillectomy: Yes - Anesthesia Hx Anesthesia: Yes Hx Anesthesia Reactions: No Hx Malignant Hyperthermia: No - Suicidal Assessment Feels Threatened In Home Enviroment: No Family/Social History - Physician Review Nursing Documentation Reviewed: Yes Family/Social History: Unknown Family HX Smoking Status: Never Smoked Hx Alcohol Use: No Hx Substance Use: No Hx Substance Use Treatment: No Allergies/Home Meds Allergies/Adverse Reactions: Allergies No Known Allergies Allergy (Verified 04/06/18 18:23) Home Medications: Home Meds Medication Instructions Recorded Confirmed Insulin Glargine, Recombina 5 units SC DAILY 08/15/17 04/06/18 [Lantus] Lisinopril [Zestril] 20 mg PO DAILY 11/20/17 04/06/18 Metoprolol Tartrate [Lopressor] 100 mg PO BID 11/20/17 04/06/18 Review of Systems - Review of Systems Constitutional: Normal, Fatigue, Fevers Eyes: Normal. absent: Vision Changes ENT: Normal. absent: Hearing Changes Respiratory: Normal, SOB, Cough (dry) Cardiovascular: Normal, Chest Pain (tightness) Gastrointestinal: Normal. absent: Abdominal Pain, Stool Changes, Constipation, Nausea, Vomiting, Appetite Changes Genitourinary Female: Normal. absent: Dysuria, Frequency, Hematuria, Urine Output Changes Musculoskeletal: Normal. absent: Arthralgias, Back Pain Skin: Normal Neurological: Normal Endocrine: Normal. absent: Diaphoresis Hemo/Lymphatic: Normal Psychiatric: Anxiety Physical Exam Vital Signs Reviewed: Yes Vital Signs Temp Pulse Resp BP Pulse Ox 05/12/18 20:48 98 F 05/12/18 20:46 98 F 85 19 118/52 L 19 L 05/12/18 20:41 65 18 135/64 100 05/12/18 19:02 98.9 F 69 18 138/69 100 05/12/18 16:29 100.4 F H 74 18 143/75 100 Temperature: Febrile Blood Pressure: Normal Pulse: Regular Respiratory Rate: Normal Appearance: Positive for: Well-Appearing, Non-Toxic, Comfortable Pain Distress: Moderate Mental Status: Positive for: Alert and Oriented X 3 - Systems Exam Head: Present: Atraumatic, Normocephalic Pupils: Present: PERRL Extroacular Muscles: Present: EOMI Conjunctiva: Present: Normal Mouth: Present: Moist Mucous Membranes Neck: Present: Normal Range of Motion Respiratory/Chest: Present: Clear to Auscultation, Good Air Exchange, Tender to Palpation (diaphragmatic). No: Respiratory Distress, Accessory Muscle Use, Wheezes, Decreased Breath Sounds, Rales, Retracting, Rhonchi Cardiovascular: Present: Regular Rate and Rhythm, Normal S1, S2. No: Murmurs Abdomen: Present: Tenderness (epigastric), Normal Bowel Sounds. No: Distention , Peritoneal Signs Breast/Axillary: Present: Tender to Palpation Back: Present: Normal Inspection. No: CVA Tenderness Upper Extremity: Present: Normal Inspection. No: Cyanosis, Edema Lower Extremity: Present: Normal Inspection. No: Edema Neurological: Present: GCS=15, CN II-XII Intact, Speech Normal Skin: Present: Warm, Dry, Normal Color. No: Rashes Psychiatric: Present: Alert, Oriented x 3, Normal Insight, Normal Concentration Medical Decision Making ED Course and Treatment: 05/12/18 18:11 Impression Pt is a 63 yr old female with PMH of DMII and CAD (s/p stent placement) who presents today for chest tightness with subjective fever, right-sided headache and dry cough for the past 3 days. On exam, lungs clear to auscultation, S1 and S2 nl, no LE edema Plan Cardiac w/u Troponin, EKG, and CXR Assess and dispo Progress note EKG: NSR CXR 05/12/18 18:23 Labs indicate BUN 35 and Cr 1.3, slightly elevated from previous visit Lymphocytes elevated 05/12/18 18:51 No active disease on CXR normal EKG labs WNL Discussed findings with pt and family; pt relates seasonal allergens affecting breathing; currently does not use inhaler; Keflex given for UTI; Macrobid CI d/t renal status and Bactrim interaction with ARB medication Advised to f/u with PMD in next day Worsening of fever, chest pain and breathing, return to ER VSS on d/c - Lab Interpretations Lab Results: 05/12/18 17:45 05/12/18 17:45 Lab Results 05/12/18 19:25: Urine Color Yellow, Urine Appearance Clear, Urine pH 5.5, Ur Specific [place] 1.025, Urine Protein Negative, Urine Glucose (UA) Negative, Urine Ketones Negative, Urine Blood Negative, Urine Nitrate Negative, Urine Bilirubin Negative, Urine Urobilinogen 0.2, Ur Leukocyte Esterase Small H, Urine RBC TEST NOT PERFORMED, Urine WBC 5 - 10, Ur Epithelial Cells 10 - 12 05/12/18 17:45: Sodium 140, Potassium 4.7, Chloride 107, Carbon Dioxide 23, Anion Gap 15, BUN 38 H, Creatinine 1.3 H, Est GFR ( Amer) 50, Est GFR ( Non-Af Amer) 41, Random Glucose 117 H, Calcium 9.0, Magnesium 1.6 L, Total Bilirubin 0.6, AST 21, ALT 25, Alkaline Phosphatase 52, Lactate Dehydrogenase 361, Total Creatine Kinase 91, Troponin I < 0.01, NT-Pro-B Natriuret Pep 53.9, Total Protein 6.8, Albumin 3.9, Globulin 2.8, Albumin/Globulin Ratio 1.4 05/12/18 17:45: PT 12.1, INR 1.06, APTT 27.2 05/12/18 17:45: WBC 4.6, RBC 4.38, Hgb 11.5 L, Hct 34.3 L, MCV 78.3 L, MCH 26.3 , MCHC 33.5, RDW 13.2, Plt Count 145, MPV 10.7, Gran % 35.0 L, Lymph % (Auto) 57.8 H, [place] % (Auto) 4.8, Eos % (Auto) 2.0, Baso % (Auto) 0.4, Gran # 1.61, Lymph # (Auto) 2.7, [place] # (Auto) 0.2, Eos # (Auto) 0.1, Baso # (Auto) 0.02 - RAD Interpretation Narrative RAD Interpretations (Text): 05/12/18 18:51 HISTORY: chest pain COMPARISON: Chest radiograph dated 04/06/2018. FINDINGS: LUNGS: No active pulmonary disease. PLEURA: No significant pleural effusion identified, no pneumothorax apparent. CARDIOVASCULAR: Atherosclerotic aortic calcifications. Cardiomediastinal silhouette within normal meds. OSSEOUS STRUCTURES: Unchanged. VISUALIZED UPPER ABDOMEN: Normal. OTHER FINDINGS: None. IMPRESSION: No active disease. Radiology Orders: 05/12/18 17:27 CHEST PORTABLE [RAD] Stat - Medication Orders Current Medication Orders: Discontinued Medications Acetaminophen (Tylenol 325mg Tab) 650 mg PO STAT STA Stop: 05/12/18 18:26 Last Admin: 05/12/18 18:54 Dose: 650 mg [facility] Pain/Vitals Document 05/12/18 18:54 EQ (Rec: 05/12/18 18:54 EQ [email or web address]) Pain Reassessment Is This A Pain ReAssessment? No Sleep Is patient sleeping during reassessment? No Presence of Pain Presence of Pain Yes Re-Assess: [facility] Pain/Vitals Document 05/12/18 19:54 GMI (Rec: 05/12/18 20:42 GMI [email or web address]) Pain Reassessment Is This A Pain ReAssessment? No Sleep Is patient sleeping during reassessment? No Presence of Pain Presence of Pain No Cephalexin Monohydrate (Keflex) 250 mg PO STAT STA PRN Reason: Protocol Stop: 05/12/18 19:46 Last Admin: 05/12/18 20:46 Dose: 250 mg Disposition/Present on Arrival - Present on Arrival Any Indicators Present on Arrival: Yes History of DVT/PE: No History of Uncontrolled Diabetes: No Urinary Catheter: No History of Decub. Ulcer: No History Surgical Site Infection Following: None - Disposition Have Diagnosis and Disposition been Completed?: Yes Diagnosis: UTI (urinary tract infection), Seasonal allergies, Diabetes, Allergic rhinitis Disposition: HOME/ ROUTINE Disposition Time: 19:35 Patient Plan: Discharge Condition: GOOD Discharge Instructions (ExitCare): Seasonal Allergies in Adults, Urinary Tract Infection, Adult (DC) Additional Instructions: CARLA DIAZ, thank you for letting us take care of you today. Your provider was Vikram Ferrell DO and YASSINE Bowden and you were treated for UTI and Cough. The emergency medical care you received today was directed at your acute symptoms. If you were prescribed any medication, please fill it and take as directed. It may take several days for your symptoms to resolve. Return to the Emergency Department if your symptoms worsen, do not improve, or if you have any other problems. PLEASE SEE YOUR PRIMARY CARE DOCTOR IN THE NEXT FEW DAYS FOR FOLLOW UP CARE USE THE VENTOLIN INHALER FOR PERSISTENT COUGH AND CHEST TIGHTNESS; TAKE THE ANTIBIOTIC FOR URINARY TRACT INFECTION Please contact your doctor or call one of the physicians/clinics you have been referred to that are listed on the Patient Visit Information form that is included in your discharge packet. Bring any paperwork you were given at discharge with you along with any medications you are taking to your follow up visit. Our treatment cannot replace ongoing medical care by a primary care provider outside of the emergency department. Thank you for allowing the [facility] team to be part of your care today. If you had an X-Ray or CT scan: A Radiologist will review the ED reading if any change in treatment is needed we will contact you. If you had a blood, urine, or wound culture: It will take several days for the results, if any change in treatment is needed we will contact you. If you had an STI test: It will take 48 hours for the results. Please call after 1 week if you have not heard back. Prescriptions: Albuterol Sulfate [Ventolin Hfa] 1 puff IH Q6 30 Days #1 Cephalexin [Keflex] 500 mg PO Q12 7 Days #14 cap Forms: [email or web address] (Indonesian)
[2018-05-12 18:19] LABS: ALB/GLOB RATIO 1.4 (1.1-1.8); ALBUMIN 3.9 g/dL (3.0-4.8); ALT/SGPT 25 U/L (7-56); AST/SGOT 21 U/L (14-36); BLOOD UREA NITROGEN 38 mg/dL (7-21); GFR AFRICAN-AMERICAN 50; GFR NON-AFRICAN AMERICAN 41
[2018-05-12 18:20] LABS: BASO # 0.02 K/mm3 (0.0-2.0); BASO % 0.4 % (0.0-3.0); EOS # 0.1 (0.0-0.7); GRAN # 1.61 (1.4-6.5); HEMOGLOBIN 11.5 g/dL (12.0-16.0); LYMPH # 2.7 (1.2-3.4); LYMPH % 57.8 % (22.0-35.0); MEAN CELL VOLUME 78.3 fl (80.0-105.0); MEAN CORPUSCULAR HEMOGLOBIN 26.3 pg (25.0-35.0); MEAN CORPUSCULAR HGB CONC 33.5 g/dl (31.0-37.0); MEAN PLATELET VOLUME 10.7 fl (7.0-11.0); MONO # 0.2 (0.1-0.6); MONO % 4.8 % (1.0-6.0); RBC 4.38 10^6/uL (3.5-6.1); RED CELL DISTRIBUTION WIDTH 13.2 % (11.5-14.5); WHITE BLOOD COUNT 4.6 10^3/ul (4.5-11.0)
[2018-05-12 18:22] LABS: INR 1.06 (0.93-1.08); PARTIAL THROMBOPLASTIN TIME 27.2 Seconds (25.1-36.5); PROTHROMBIN TIME 12.1 SECONDS (9.4-12.5)
--- NOTE | 2018-05-12 18:24 | RAD ---
HISTORY: chest pain COMPARISON: Chest radiograph dated 04/06/2018. FINDINGS: LUNGS: No active pulmonary disease. PLEURA: No significant pleural effusion identified, no pneumothorax apparent. CARDIOVASCULAR: Atherosclerotic aortic calcifications. Cardiomediastinal silhouette within normal meds. OSSEOUS STRUCTURES: Unchanged. VISUALIZED UPPER ABDOMEN: Normal. OTHER FINDINGS: None. IMPRESSION: No active disease.
[2018-05-12 18:31] LABS: B-TYPE NATRIURETIC PEPTIDE 53.9 pg/mL (0-450); TROPONIN I < 0.01 ng/mL
[2018-05-12 19:29] LABS: PH,URINE 5.5 (4.7-8.0); URINE APPEARANCE CLEAR (CLEAR); URINE BILIRUBIN NEGATIVE (NEGATIVE); URINE BLOOD NEGATIVE (NEGATIVE); URINE COLOR YELLOW (YELLOW); URINE GLUCOSE (UA) NEGATIVE (NEGATIVE); URINE LEUKOCYTE ESTERASE SMALL Leu/uL (NEGATIVE); URINE PROTEIN NEGATIVE mg/dL (<30 mg/dL); URINE UROBILINOGEN 0.2 E.U./dL (<1 E.U./dL)
[2018-05-12 20:47] VITALS: BP 118/52; PULSE 85; RESP 19; TEMP 98; O2SAT 19
--- NOTE | 2018-05-13 09:44 | CARD ---
APPROVED REPORT EKG Measurement Heart [id number] <Conclusion> Normal sinus rhythm Normal ECG No change
== END 2018-05-12 20:48 | disposition home or self-care (01) ==
LOC: ED 16:22
DX: N39.0 Urinary tract infection, site not specified (principal); E11.9 Type 2 diabetes mellitus without complications; J30.2 Other seasonal allergic rhinitis; I25.10 Atherosclerotic heart disease of native coronary artery without angina pectoris; I10 Essential (primary) hypertension

== ENCOUNTER 2018-10-11 19:30 | Emergency (ER) | payer MEDICAID ==
[2018-10-11 19:35] VITALS: BMI 29.9
[2018-10-11 19:40] VITALS: RESP 18
[2018-10-11] MEDS ORDERED: TDAP Vaccine 0.5 mL Syr IM ONE (19:45)
[2018-10-11] MEDS ORDERED: Lidocaine 1% Inj (20ml) IJ STA (19:45)
[2018-10-11] MEDS ORDERED: Lidocaine 1% 5ml Abboject ONE (19:48)
--- NOTE | 2018-10-11 19:57 | ED PDOC ---
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 Patient states she was cutting food with a sharp knife when it slipped and cut into her left 2nd finger. Pt was unable to control bleeding at home, prompting ED visit. Pt is not on blood thinners. Unknown last tetanus. Denies numbness, paresthesias, lacerations elsewhere, or any other associated complaints. <Sylvie Campa - Last Filed: 10/12/18 00:10> - General Chief Complaint: Abnormal Skin Integrity Time Seen by Provider: 10/11/18 19:44 Past Medical History - Provider Review Nursing Documentation Reviewed: Yes - Past History Past History: No Previous - Infectious Disease Hx of Infectious Diseases: None - Tetanus Immunization Tetanus Immunization: Unknown - Cardiac Hx Cardiac Disorders: Yes Hx Hypertension: Yes Other/Comment: stents - Pulmonary Hx Respiratory Disorders: No - Neurological Hx Neurological Disorder: No - HEENT Hx HEENT Disorder: No - Renal Hx Renal Disorder: No - Endocrine/Metabolic Hx Endocrine Disorders: Yes Hx Diabetes Mellitus Type 2: Yes - Hematological/Oncological Hx Blood Disorders: No - Integumentary Hx Dermatological Disorder: No - Musculoskeletal/Rheumatological Hx Falls: Yes - Gastrointestinal Hx Gastrointestinal Disorders: No - Genitourinary/Gynecological Hx Genitourinary Disorders: No - Psychiatric Hx Psychophysiologic Disorder: No Hx Substance Use: No - Surgical History Hx Gastric Bypass Surgery: Yes (06/05/2016) Hx Orthopedic Surgery: Yes (Knee Arthroplasty R) Hx Tonsillectomy: Yes - Anesthesia Hx Anesthesia: Yes Hx Anesthesia Reactions: No Hx Malignant Hyperthermia: No - Suicidal Assessment Feels Threatened In Home Enviroment: No <Sylvie Campa - Last Filed: 10/12/18 00:10> Family/Social History - Physician Review Nursing Documentation Reviewed: Yes Family/Social History: No Known Family HX Smoking Status: Never Smoked Hx Alcohol Use: No Hx Substance Use: No Hx Substance Use Treatment: No <Sylvie Campa - Last Filed: 10/12/18 00:10> Allergies/Home Meds <RubinaDeshaun - Last Filed: 10/11/18 20:05> <KatherynSylvie - Last Filed: 10/12/18 00:10> Allergies/Adverse Reactions: Allergies No Known Allergies Allergy (Verified 04/06/18 18:23) Home Medications: Home Meds Medication Instructions Recorded Confirmed Insulin Glargine, Recombina 5 units SC DAILY 08/15/17 04/06/18 [Lantus] Lisinopril [Zestril] 20 mg PO DAILY 11/20/17 04/06/18 Metoprolol Tartrate [Lopressor] 100 mg PO BID 11/20/17 04/06/18 Review of Systems - Physician Review All systems were reviewed & negative as marked: Yes - Review of Systems Constitutional: Normal. absent: Fevers Eyes: Normal. absent: Vision Changes ENT: Normal Respiratory: Normal. absent: SOB Cardiovascular: Normal. absent: Chest Pain, Palpitations Gastrointestinal: Normal. absent: Abdominal Pain, Nausea, Vomiting Genitourinary Female: Normal Musculoskeletal: Normal. absent: Arthralgias, Back Pain Skin: Laceration (left hand 2nd digit) Neurological: Normal. absent: Headache, Dizziness, Other (numbness, paresthesias) Endocrine: Normal Hemo/Lymphatic: Normal Psychiatric: Normal <SilkeremigioSylvie - Last Filed: 10/12/18 00:10> Physical Exam Vital Signs Temp Pulse Resp BP Pulse Ox 10/11/18 19:30 97.6 F 68 18 128/58 L 100 <Rubina,Deshaun - Last Filed: 10/11/18 20:05> Vital Signs Reviewed: Yes Vital Signs Temp Pulse Resp BP Pulse Ox 10/11/18 19:30 97.6 F 68 18 128/58 L 100 Temperature: Afebrile Blood Pressure: Normal Pulse: Regular Respiratory Rate: Normal Appearance: Positive for: Well-Appearing, Non-Toxic, Comfortable Pain Distress: None Mental Status: Positive for: Alert and Oriented X 3 - Systems Exam Head: Present: Atraumatic, Normocephalic Pupils: Present: PERRL Extroacular Muscles: Present: EOMI Conjunctiva: Present: Normal Mouth: Present: Moist Mucous Membranes Neck: Present: Normal Range of Motion Respiratory/Chest: Present: Clear to Auscultation, Good Air Exchange. No: Respiratory Distress, Accessory Muscle Use Cardiovascular: Present: Regular Rate and Rhythm, Normal S1, S2, Peripheal Pulses Present. No: Murmurs Abdomen: No: Tenderness, Distention, Peritoneal Signs Back: Present: Normal Inspection Upper Extremity: Present: Normal ROM, NORMAL PULSES, Tenderness (over laceration), Neurovascularly Intact, Capillary Refill < 2s, Other (3cm curvilinear laceration to left hand 2nd digit, medial to PIP joint; active bleeding noted; no suspicion for tendon involvement, FROM of hands and digits bilaterally; full strength of finger flexion and extension against resistance). No: Cyanosis, Edema, Swelling, Erythema Lower Extremity: Present: Normal Inspection, Normal ROM. No: Edema Neurological: Present: GCS=15, CN II-XII Intact, Speech Normal, Motor Func Grossly Intact, Normal Sensory Function, Gait Normal Skin: Present: Warm, Dry, Normal Color. No: Rashes Psychiatric: Present: Alert, Oriented x 3, Normal Insight, Normal Concentration, Normal Affect, Normal Mood <Sylvie Campa - Last Filed: 10/12/18 00:10> Medical Decision Making - Medication Orders Current Medication Orders: Discontinued Medications Lidocaine HCl (Lidocaine 1% (20ml)) 10 ml IJ STAT STA Stop: 10/11/18 19:46 Last Admin: 10/11/18 19:59 Dose: 1 applic Tetanus/Reduced Diphtheria/Acell Pertussis (Boostrix Vaccine Inj) 0.5 ml IM .ONCE ONE Stop: 10/11/18 19:46 Last Admin: 10/11/18 19:58 Dose: 0.5 ml Immunization Registry Document 10/11/18 19:58 (Rec: 10/11/18 19:58 [id number]) [facility]-Date provided 10/11/18 <Deshaun Cespedes - Last Filed: 10/11/18 20:05> ED Course and Treatment: Initial Plan: * Wound cleaning * Suture repair * Splint * TDaP * Keflex Wound irrigated thoroughly by ER techs. Patient tolerated suture repair well. No tendon involvement, no FB appreciated on exploration. 4 nylon sutures placed, 2 on each side of curvilinear laceration. 1 subcutaneous suture placed to approximate wound. Pt tolerated pr ocedure well without complication, See procedure note. Wound dressed with application of bacitracin by ER techs. Finger splint applied. Plan of care discussed with patient and family. Strict instructions given regarding prescription use, importance of followup, and signs/symptoms to return to the ED including worsening pain, numbness, parethesias, weakness, signs of wound infection, or any other new/worsening symptoms. Patient verbalizes understanding of instructions. Patient given the opportunity to ask questions. Patient A&Ox3, ambulating with steady gait, with vital signs stable for disch arge. Patient agrees with plan to discharge home with instructions to followup in 2 days for wound check and 10-14 days for suture removal. <Sylvie Campa - Last Filed: 10/12/18 00:10> Procedure: Wound Repair - Time Performed Time Performed: 21:00 - Time Out Time Out: Side verified, Site verified, Patient ID confirmed, Sterile procedures obs. - Consent Obtained Consent obtained: Verbal - Performed by Performed by: Mid-level Provider - Indications Indication(s):: Laceration - Location Location:: Left, Hand Finger:: Index Shape:: Curvilinear Depth:: Muscle - Anesthetic Technique Anesthetic Technique: Regional block Local/Regional Anesthetic:: Lidocaine 1% - Wound Examination Wound Examination:: Other (No tendon injury) - Debris Debris:: None - Irrigated Irrigated with ml of normal saline: 50 - Complexity Complexity:: Intermediate (2 layer) - Wound repair method Sutures:: # (4), Size (4-0), Type (Nylon), Technique (simple interrupted) - Muscle repiar layer closed with Muscle repair layer closed with:: # (1), Size (5-0), Type (Vicryl), Wound well approximated, Abx ointment applied, Dressing applied, Tetanus ordered - Complications Complications: None - Patient tolerated procedure Patient Tolerated Procedure:: Well <Sylvie Campa - Last Filed: 10/12/18 00:10> - 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 <Deshaun Cespedes - Last Filed: 10/11/18 20:05> Disposition/Present on Arrival <Deshaun Cespedes - Last Filed: 10/11/18 20:05> - Present on Arrival Any Indicators Present on Arrival: No History of DVT/PE: No History of Uncontrolled Diabetes: No Urinary Catheter: No History of Decub. Ulcer: No History Surgical Site Infection Following: None - Disposition Have Diagnosis and Disposition been Completed?: Yes Disposition Time: 21:30 Patient Plan: Discharge <SilkeremigioSylvie - Last Filed: 10/12/18 00:10> - Disposition Diagnosis: Laceration Disposition: HOME/ ROUTINE Condition: IMPROVED Discharge Instructions (ExitCare): Wound Care (DC), Laceration Repair With Stitches (DC) Additional Instructions: Return in 2 days for wound check Take Keflex antibiotic every 6 hours x 7 days Tylenol for pain Keep wound clean, dry, and covered. Keep finger in splint. Return in 10-14 days for suture removal Followup with primary doctor within 2 days Return to ER for any new/worsening symptoms Prescriptions: Cephalexin [Keflex] 500 mg PO QID 7 Days #28 capsule Referrals: Belgica Gardiner [Primary Care Provider] - Follow up with primary Forms: [employer] (Czech)
[2018-10-11 21:42] VITALS: BP 128/67; PULSE 70; TEMP 97.7; O2SAT 99
== END 2018-10-11 21:50 | disposition home or self-care (01) ==
LOC: ED 19:30
DX: S61.211A Laceration without foreign body of left index finger without damage to nail, initial encounter (principal); W26.0XXA Contact with knife, initial encounter; Y93.G1 Activity, food preparation and clean up; Y92.009 Unspecified place in unspecified non-institutional (private) residence as the place of occurrence of the external cause; Z23 Encounter for immunization; E11.9 Type 2 diabetes mellitus without complications; I10 Essential (primary) hypertension; I25.10 Atherosclerotic heart disease of native coronary artery without angina pectoris; Z98.84 Bariatric surgery status

== ENCOUNTER 2018-10-13 16:33 | Emergency (ER) | payer MEDICAID ==
[2018-10-13 16:33] VITALS: BMI 29.9
[2018-10-13 17:03] VITALS: RESP 18
[2018-10-13] MEDS ORDERED: Bacitracin 500 Units/gm Oint Foilpak UD ONE (17:07)
--- NOTE | 2018-10-13 17:13 | ED PDOC ---
Arrival/HPI - General Chief Complaint: Wound Check Time Seen by Provider: 10/13/18 16:35 Historian: Patient - History of Present Illness Narrative History of Present Illness (Text): 63 y/o right-handed female with PMH of HTN, DM presents to the ED for a wound check of her left 2nd digit. Pt was sutured with 4 nylon sutures on 10/11 after sustaining a laceration to her left 2nd digit from a kitchen knife. Pt received tetanus shot during that visit. SHe has been keeping the wound clean, dry, and covered, and has not removed original dressing. Denies fevers, chills, wound redness, drainage, swelling, numbness, paresthesias, or any other associated symptoms. Past Medical History - Past History Past History: No Previous - Infectious Disease Hx of Infectious Diseases: None - Tetanus Immunization Tetanus Immunization: Unknown - Cardiac Hx Cardiac Disorders: Yes Hx Hypertension: Yes Other/Comment: stents - Pulmonary Hx Respiratory Disorders: No - Neurological Hx Neurological Disorder: No - HEENT Hx HEENT Disorder: No - Renal Hx Renal Disorder: No - Endocrine/Metabolic Hx Endocrine Disorders: Yes Hx Diabetes Mellitus Type 2: Yes - Hematological/Oncological Hx Blood Disorders: No - Integumentary Hx Dermatological Disorder: No - Musculoskeletal/Rheumatological Hx Falls: Yes - Gastrointestinal Hx Gastrointestinal Disorders: No - Genitourinary/Gynecological Hx Genitourinary Disorders: No - Psychiatric Hx Psychophysiologic Disorder: No Hx Substance Use: No - Surgical History Hx Gastric Bypass Surgery: Yes (06/05/2016) Hx Orthopedic Surgery: Yes (Knee Arthroplasty R) Hx Tonsillectomy: Yes - Anesthesia Hx Anesthesia: Yes Hx Anesthesia Reactions: No Hx Malignant Hyperthermia: No - Suicidal Assessment Feels Threatened In Home Enviroment: No Family/Social History Family/Social History: No Known Family HX Smoking Status: Never Smoked Hx Alcohol Use: No Hx Substance Use: No Hx Substance Use Treatment: No Allergies/Home Meds Allergies/Adverse Reactions: Allergies No Known Allergies Allergy (Verified 04/06/18 18:23) Home Medications: Home Meds Medication Instructions Recorded Confirmed Insulin Glargine, Recombina 5 units SC DAILY 08/15/17 04/06/18 [Lantus] Lisinopril [Zestril] 20 mg PO DAILY 11/20/17 04/06/18 Metoprolol Tartrate [Lopressor] 100 mg PO BID 11/20/17 04/06/18 Review of Systems - Review of Systems Constitutional: Normal Eyes: Normal ENT: Normal Respiratory: Normal Cardiovascular: Normal Gastrointestinal: Normal Musculoskeletal: Normal Skin: Normal, Laceration (left 2nd digit laceration well healing with 4 sutures intact). absent: Cellulitis Neurological: Normal Endocrine: Normal Hemo/Lymphatic: Normal Psychiatric: Normal Physical Exam Vital Signs Reviewed: Yes Vital Signs Temp Pulse Resp BP Pulse Ox 10/13/18 16:34 97.9 F 62 18 150/83 100 Temperature: Afebrile Blood Pressure: Normal Pulse: Regular Respiratory Rate: Normal Appearance: Positive for: Well-Appearing, Non-Toxic, Comfortable Pain Distress: None Mental Status: Positive for: Alert and Oriented X 3 - Systems Exam Head: Present: Atraumatic, Normocephalic Pupils: Present: PERRL Extroacular Muscles: Present: EOMI Conjunctiva: Present: Normal Mouth: Present: Moist Mucous Membranes Nose (External): Present: Atraumatic Nose (Internal): Present: Normal Inspection Neck: Present: Normal Range of Motion Respiratory/Chest: Present: Clear to Auscultation, Good Air Exchange. No: Respiratory Distress, Accessory Muscle Use Cardiovascular: Present: Regular Rate and Rhythm, Normal S1, S2. No: Murmurs Upper Extremity: Present: Normal ROM (full strength against resistance in finger flexion/extension), NORMAL PULSES, Tenderness (mild over laceration), Neurovascularly Intact, Capillary Refill < 2s, Other (well healing wound to left 2nd digit; 4 sutures intact; no erythema, warmth; mild tenderness over proximal laceration). No: Swelling, Erythema, Deformity Lower Extremity: Present: Normal Inspection, NORMAL PULSES, Normal ROM. No: Edema Neurological: Present: GCS=15, CN II-XII Intact, Speech Normal, Motor Func Grossly Intact, Normal Sensory Function, Gait Normal Skin: Present: Warm, Dry, Normal Color. No: Rashes Psychiatric: Present: Alert, Oriented x 3, Normal Insight, Normal Concentration, Normal Affect, Normal Mood Disposition/Present on Arrival - Present on Arrival Any Indicators Present on Arrival: No History of DVT/PE: No History of Uncontrolled Diabetes: No Urinary Catheter: No History Surgical Site Infection Following: None - Disposition Have Diagnosis and Disposition been Completed?: Yes Diagnosis: Laceration, Visit for wound check Disposition: HOME/ ROUTINE Disposition Time: 17:10 Condition: GOOD Discharge Instructions (ExitCare): Wound Care (DC) Additional Instructions: Return in 8-12 days or suture removal (10-14 days from initial injury) Continue antibiotics as prescribed Keep wound clean, dry, and covered No soaking the finger. If you get it wet, pat dry and re-dress Use bacitracin or neosporin Followup with hand doctor within 2 days Followup with primary doctor within 2 days Return to ER for any new/worsening symptoms or signs of infection Referrals: Hui Bah MD [Staff Provider] - Follow up with primary Belgica Gardiner [Primary Care Provider] - Follow up with primary Forms: [employer] [facility] (Mongolian)
[2018-10-13 17:53] VITALS: BP 132/78; PULSE 72; TEMP 98; O2SAT 98
--- NOTE | 2018-10-13 17:58 | RAD ---
Date of service: 10/13/2018 PROCEDURE: Left Index finger radiographs. HISTORY: 2nd digit laceration COMPARISON: None available. TECHNIQUE: AP radiograph of the left hand, as well as spot oblique and lateral images of index finger were obtained. FINDINGS: LEFT INDEX FINGER: Unremarkable left 2nd digit without acute displaced fracture. Corticated ossific density distal to the ulna consistent with remote ulna styloid fracture. Remainder of the left hand (as seen on the AP view) grossly intact. JOINTS: No dislocation. SOFT TISSUES: Soft tissue swelling of the 2nd digit. No evidence of radiopaque foreign body. OTHER FINDINGS: None. IMPRESSION: Soft tissue swelling of the 2nd digit. No evidence of radiopaque foreign body.
== END 2018-10-13 17:53 | disposition home or self-care (01) ==
LOC: ED 16:33
DX: S61.211D Laceration without foreign body of left index finger without damage to nail, subsequent encounter (principal); W26.0XXD Contact with knife, subsequent encounter; E11.9 Type 2 diabetes mellitus without complications; I10 Essential (primary) hypertension

== ENCOUNTER 2018-11-09 09:04 | Observation (INO) | payer MEDICAID ==
[2018-11-09 09:08] VITALS: BMI 29.2
--- NOTE | 2018-11-09 09:30 | ED PDOC ---
Arrival/HPI - General Time Seen by Provider: 11/09/18 09:24 Historian: Patient - History of Present Illness Narrative History of Present Illness (Text): 11/09/18 09:26 63 year old female, whose past medical history includes CAD with 2 stents, who presents to the emergency department complaining of chest pain x yesterday. Patient states pain is sharp and left sided. Patient notes she took aspirin today. Patient denies any fever, chills, shortness of breath, nausea, vomiting, diarrhea, back pain, neck pain, headache, dizziness, or any other complaints. Time/Duration: 24 hours Symptom Onset: Gradual Symptom Course: Unchanged Activities at Onset: Light Past Medical History - Provider Review Nursing Documentation Reviewed: Yes - Past History Past History: No Previous - Infectious Disease Hx of Infectious Diseases: None - Tetanus Immunization Tetanus Immunization: Unknown - Cardiac Hx Cardiac Disorders: Yes Hx Hypertension: Yes Other/Comment: stents - Pulmonary Hx Respiratory Disorders: No - Neurological Hx Neurological Disorder: No - HEENT Hx HEENT Disorder: No - Renal Hx Renal Disorder: No - Endocrine/Metabolic Hx Endocrine Disorders: Yes Hx Diabetes Mellitus Type 2: Yes - Hematological/Oncological Hx Blood Disorders: No - Integumentary Hx Dermatological Disorder: No - Musculoskeletal/Rheumatological Hx Falls: Yes - Gastrointestinal Hx Gastrointestinal Disorders: No - Genitourinary/Gynecological Hx Genitourinary Disorders: No - Psychiatric Hx Psychophysiologic Disorder: No Hx Substance Use: No - Surgical History Hx Gastric Bypass Surgery: Yes (06/05/2016) Hx Orthopedic Surgery: Yes (Knee Arthroplasty R) Hx Tonsillectomy: Yes - Anesthesia Hx Anesthesia: Yes Hx Anesthesia Reactions: No Hx Malignant Hyperthermia: No - Suicidal Assessment Feels Threatened In Home Enviroment: No Family/Social History - Physician Review Nursing Documentation Reviewed: Yes Family/Social History: Unknown Family HX Smoking Status: Never Smoked Hx Alcohol Use: No Hx Substance Use: No Hx Substance Use Treatment: No Allergies/Home Meds Allergies/Adverse Reactions: Allergies No Known Allergies Allergy (Verified 04/06/18 18:23) Home Medications: Home Meds Medication Instructions Recorded Confirmed RX: Lisinopril [Zestril] 20 mg PO DAILY 11/20/17 11/09/18 RX: Metoprolol Tartrate [Lopressor] 100 mg PO BID 11/20/17 11/09/18 Aspirin [Adult Aspirin] 81 mg PO DAILY 11/09/18 11/09/18 Insulin Glargine, Recombina 5 unit SC BID 11/09/18 11/09/18 [Lantus] RX: Atorvastatin [Lipitor] 20 mg PO DAILY 11/09/18 11/09/18 RX: Ferrous Sulfate [Ferosul] 325 mg PO BID 11/09/18 11/09/18 Sucralfate [Carafate] 1 gm PO TID 11/09/18 11/09/18 metFORMIN [glucOPHAGE] 500 mg PO BID 11/09/18 11/09/18 Review of Systems - Physician Review All systems were reviewed & negative as marked: Yes - Review of Systems Constitutional: Normal Eyes: Normal ENT: Normal Respiratory: Normal. absent: SOB, Cough Cardiovascular: Chest Pain (left sided) Gastrointestinal: Normal. absent: Abdominal Pain Genitourinary Female: Normal. absent: Dysuria, Frequency Musculoskeletal: Normal. absent: Back Pain, Neck Pain Skin: Normal. absent: Rash Neurological: Normal. absent: Headache, Dizziness Endocrine: Normal Hemo/Lymphatic: Normal Psychiatric: Normal Physical Exam Vital Signs Reviewed: Yes Vital Signs Temp Pulse Resp BP Pulse Ox 11/09/18 09:15 98.0 F 85 18 138/68 100 Temperature: Afebrile Blood Pressure: Normal Pulse: Regular Respiratory Rate: Normal Appearance: Positive for: Well-Appearing, Non-Toxic, Comfortable Pain Distress: None Mental Status: Positive for: Alert and Oriented X 3 - Systems Exam Head: Present: Atraumatic, Normocephalic Pupils: Present: PERRL Extroacular Muscles: Present: EOMI Conjunctiva: Present: Normal Mouth: Present: Moist Mucous Membranes Neck: Present: Normal Range of Motion Respiratory/Chest: Present: Clear to Auscultation, Good Air Exchange. No: Respiratory Distress, Accessory Muscle Use Cardiovascular: Present: Regular Rate and Rhythm, Normal S1, S2. No: Murmurs Abdomen: No: Tenderness, Distention, Peritoneal Signs Back: Present: Normal Inspection Upper Extremity: Present: Normal Inspection. No: Cyanosis, Edema Lower Extremity: Present: Normal Inspection. No: Edema Neurological: Present: GCS=15, CN II-XII Intact, Speech Normal Skin: Present: Warm, Dry, Normal Color. No: Rashes Psychiatric: Present: Alert, Oriented x 3, Normal Insight, Normal Concentration Medical Decision Making ED Course and Treatment: 11/09/18 09:29 Impression: 63 year old female presents to the Emergency department complaining of cp x yesterday. ro acs Plan: -- EKG -- Cardiac ISO -- Labs -- Chest X-ray -- UA -- Reassess and disposition Progress Notes: EKG reviewed, shows NSR at [address]/T wave changes. 11/09/18 11:35 Chest X-ray reviewed, shows: IMPRESSION: No active disease. 11/09/18 12:38 ho of cad. pt took asa today. - RAD Interpretation Radiology Orders: 11/09/18 09:26 CHEST PORTABLE [RAD] Stat - Scribe Statement The provider has reviewed the documentation as recorded by the Scribe Amanda Newby All medical record entries made by the Scribe were at my direction and personally dictated by me. I have reviewed the chart and agree that the record accurately reflects my personal performance of the history, physical exam, medical decision making, and the department course for this patient. I have also personally directed, reviewed, and agree with the discharge instructions and disposition. Disposition/Present on Arrival - Present on Arrival Any Indicators Present on Arrival: No History of DVT/PE: No History of Uncontrolled Diabetes: No Urinary Catheter: No History Surgical Site Infection Following: None - Disposition Have Diagnosis and Disposition been Completed?: Yes Diagnosis: Chest pain Disposition: HOSPITALIZED Disposition Time: 11:00 Condition: STABLE
[2018-11-09 09:49] LABS: BASO # 0.02 K/mm3 (0.0-2.0); BASO % 0.4 % (0.0-3.0); EOS # 0.1 (0.0-0.7); EOS % 2.2 % (1.5-5.0); GRAN # 2.16 (1.4-6.5); GRAN % 46.6 % (50.0-68.0); LYMPH # 2.1 (1.2-3.4); LYMPH % 45.4 % (22.0-35.0); MEAN CELL VOLUME 80.6 fl (80.0-105.0); MEAN CORPUSCULAR HGB CONC 32.3 g/dl (31.0-37.0); MONO # 0.3 (0.1-0.6); MONO % 5.4 % (1.0-6.0); RBC 4.23 10^6/uL (3.5-6.1); RED CELL DISTRIBUTION WIDTH 13.8 % (11.5-14.5); WHITE BLOOD COUNT 4.6 10^3/uL (4.5-11.0)
--- NOTE | 2018-11-09 09:58 | RAD ---
Date of service: 11/09/2018 HISTORY: cp COMPARISON: Chest radiograph dated 05/12/2018. FINDINGS: LUNGS: No active pulmonary disease. PLEURA: No significant pleural effusion identified, no pneumothorax apparent. CARDIOVASCULAR: Aortic atherosclerotic calcifications. Cardiomediastinal silhouette stably prominent. OSSEOUS STRUCTURES: Unchanged. VISUALIZED UPPER ABDOMEN: Normal. OTHER FINDINGS: None. IMPRESSION: No active disease.
[2018-11-09 09:59] LABS: ALB/GLOB RATIO 1.4 (1.1-1.8); ALBUMIN 3.6 g/dL (3.0-4.8); ALT/SGPT 28 U/L (7-56); AST/SGOT 18 U/L (14-36); BLOOD UREA NITROGEN 24 mg/dL (7-21); GFR NON-AFRICAN AMERICAN 56; INR 1.12; PARTIAL THROMBOPLASTIN TIME 26.4 Seconds (25.1-36.5); PROTHROMBIN TIME 12.9 SECONDS (9.4-12.5)
[2018-11-09 10:09] LABS: TROPONIN I < 0.01 ng/mL
[2018-11-09] MEDS ORDERED: Magnesium Sulfate 2 gm/50 ml 2 GM/50 ML BAG IVPB ONE (10:51)
--- NOTE | 2018-11-09 11:15 | CP.PCM.HP ---
<MaikelKaren rogers - Last Filed: 11/09/18 11:43> History of Present Illness - History of Present Illness History of Present Illness: H&P for HospitalistOnur PGY3 This is a 63yo F with past medical history of CAD s/p 2 stents, HTN, DM, GERD who comes to ED for chest pain x 1 day. Patient reports she is having constant L sided chest pain and pressure since last night. She was unable to sleep because of it. She denies any radiation down the arm or up the neck. It does not worsen with palpation. Patient states she took 2 aspirin yesterday without any relief. She states her is also sick at home and states she felt like she had a fever yesterday but did not check her temperature. She denies cough, shortness of breath, sore throat, nausea/vomiting/diarrhea, numbness/tingling, chills, vision changes, dysuria or hematuria. Patient does admit that she sometimes DOES NOT TAKE HER PLAVIX due to easy bruising. Her last stent was between [id number]. Past medical history: CAD s/p 2 stents, HTN, DM, GERD, Iron deficiency anemia Past surgical history: 2 PCI Home meds: As per JAN. Confirmed with [facility] Allergies: NKDA Social history: Denies EtOH, drug or tobacco use. Is independent with all ADLs. Live with Family history: Mom- (Had HTN, DM and "heart problems") Dad- after "rectal surgery" PMD: Dr. Gardiner Pharm: [facility] (53) [employer] Dr. Too Otto- [facility] [place], [place] Present on Admission - Present on Admission Any Indicators Present on Admission: No Review of Systems - Review of Systems All systems: reviewed and no additional remarkable complaints except Review of Systems: 12 point ROS reviewed as per HPI and is otherwise negative Past Patient History - Infectious Disease Hx of Infectious Diseases: None - Tetanus Immunizations Tetanus Immunization: Unknown - Past Social History Smoking Status: Never Smoked - CARDIAC Hx Cardiac Disorders: Yes Hx Hypertension: Yes Other/Comment: stents - PULMONARY Hx Respiratory Disorders: No - NEUROLOGICAL Hx Neurological Disorder: No - HEENT Hx HEENT Problems: No - RENAL Hx Chronic Kidney Disease: No - ENDOCRINE/METABOLIC Hx Endocrine Disorders: Yes Hx Diabetes Mellitus Type 2: Yes - HEMATOLOGICAL/ONCOLOGICAL Hx Blood Disorders: No - INTEGUMENTARY Hx Dermatological Problems: No - MUSCULOSKELETAL/RHEUMATOLOGICAL Hx Falls: Yes - GASTROINTESTINAL Hx Gastrointestinal Disorders: No - GENITOURINARY/GYNECOLOGICAL Hx Genitourinary Disorders: No - PSYCHIATRIC Hx Psychophysiologic Disorder: No Hx Substance Use: No - SURGICAL HISTORY Hx Gastric Bypass Surgery: Yes (06/05/2016) Hx Orthopedic Surgery: Yes (Knee Arthroplasty R) Hx Tonsillectomy: Yes - ANESTHESIA Hx Anesthesia: Yes Hx Anesthesia Reactions: No Hx Malignant Hyperthermia: No Meds Allergies/Adverse Reactions: Allergies Allergy/AdvReac Type Severity Reaction Status Date / Time No Known Allergies Allergy Verified 04/06/18 18:23 Physical Exam - Constitutional Appears: No Acute Distress - Head Exam Head Exam: ATRAUMATIC, NORMAL INSPECTION, NORMOCEPHALIC - Eye Exam Eye Exam: EOMI, Normal appearance, PERRL Pupil Exam: NORMAL ACCOMODATION, PERRL - ENT Exam ENT Exam: Mucous Membranes Moist, Normal Oropharynx - Neck Exam Neck exam: Positive for: Normal Inspection. Negative for: Lymphadenopathy - Respiratory Exam Respiratory Exam: Clear to Auscultation Bilateral, NORMAL BREATHING PATTERN. absent: Rales, Rhonchi, Wheezes - Cardiovascular Exam Cardiovascular Exam: REGULAR RHYTHM, +S1, +S2. absent: Gallop, Rubs, Systolic Murmur - GI/Abdominal Exam GI & Abdominal Exam: Normal Bowel Sounds, Soft. absent: Mass, Rebound, Rigid, Tenderness - Extremities Exam Extremities exam: Positive for: full ROM, normal inspection. Negative for: calf tenderness, pedal edema - Neurological Exam Neurological exam: Alert, CN II-XII Intact, Oriented x3 - Psychiatric Exam Psychiatric exam: Normal Affect, Normal Mood - Skin Skin Exam: Dry, Intact, Normal Color, Warm Results - Vital Signs Recent Vital Signs: Last Vital Signs Temp 98.0 F 11/09/18 09:15 Pulse 85 11/09/18 09:15 Resp 18 11/09/18 09:15 BP 138/68 11/09/18 09:15 Pulse Ox 100 11/09/18 09:15 - Labs Result Diagrams: 11/09/18 09:38 11/09/18 09:38 Labs: Laboratory Results - last 24 hr 11/09/18 11/09/18 11/09/18 09:38 09:38 09:38 WBC 4.6 RBC 4.23 Hgb 11.0 L Hct 34.1 L MCV 80.6 MCH 26.0 MCHC 32.3 RDW 13.8 Plt Count 161 MPV 10.0 Gran % 46.6 L Lymph % (Auto) 45.4 H Bureau % (Auto) 5.4 Eos % (Auto) 2.2 Baso % (Auto) 0.4 Gran # 2.16 Lymph # (Auto) 2.1 Bureau # (Auto) 0.3 Eos # (Auto) 0.1 Baso # (Auto) 0.02 PT 12.9 H INR 1.12 APTT 26.4 Sodium 136 Potassium 4.6 Chloride 105 Carbon Dioxide 26 Anion Gap 9 L BUN 24 H Creatinine 1.0 Est GFR ( Amer) > 60 Est GFR (Non-Af Amer) 56 Random Glucose 276 H Calcium 9.0 Magnesium 1.3 L Total Bilirubin 1.0 AST 18 ALT 28 Alkaline Phosphatase 56 Lactate Dehydrogenase 305 L Total Creatine Kinase 63 Troponin I < 0.01 Total Protein 6.2 Albumin 3.6 Globulin 2.6 Albumin/Globulin Ratio 1.4 Assessment & Plan - Assessment and Plan (Free Text) Assessment: This is a 63yo F with past medical history of CAD s/p 2 stents, HTN, DM, GERD, Iron deficiency anemia who is admitted for 1. Chest pain r/o ACS 2. CAD s/p stents 3. HTN 4. DM 5. GERD 6. Iron deficiency anemia Labs and imaging reviewed. EKG showed NSR at rate of [address]/T wave changes. CXR showed no active disease. Troponin negative x 1. Will consult cardiology. Will continue to trend troponin. Will check TSH, HgbA1c, Lipid panel . Will resume cardiac medications (Metoprolol, Lisinopril, Lipitor, Plavix). Will hold Metformin and place patient on insulin sliding scale. Will continue Carafate for hx of GERD and Feosol for Hx of Iron deficiency anemia. Hgb is stable at this time. Will also check rapid flu due to sick contact however flu unlikely since patient has no flu like symptoms and vitals are within normal limits. She is on DVT prophylaxis. Case seen, discussed and reviewed with Dr. Seema Mullins PGY3 - Date & Time Date: 11/09/18 Time: 12:02 <Paco Stephenson - Last Filed: 11/09/18 13:09> Results - Vital Signs Recent Vital Signs: Last Vital Signs Temp 97.9 F 11/09/18 12:45 Pulse 63 11/09/18 12:45 Resp 21 11/09/18 12:45 BP 146/74 11/09/18 12:45 Pulse Ox 99 11/09/18 11:51 - Labs Result Diagrams: 11/09/18 09:38 11/09/18 09:38 Labs: Laboratory Results - last 24 hr 11/09/18 11/09/18 11/09/18 09:38 09:38 09:38 WBC 4.6 RBC 4.23 Hgb 11.0 L Hct 34.1 L MCV 80.6 MCH 26.0 MCHC 32.3 RDW 13.8 Plt Count 161 MPV 10.0 Gran % 46.6 L Lymph % (Auto) 45.4 H Bureau % (Auto) 5.4 Eos % (Auto) 2.2 Baso % (Auto) 0.4 Gran # 2.16 Lymph # (Auto) 2.1 Bureau # (Auto) 0.3 Eos # (Auto) 0.1 Baso # (Auto) 0.02 PT 12.9 H INR 1.12 APTT 26.4 Sodium 136 Potassium 4.6 Chloride 105 Carbon Dioxide 26 Anion Gap 9 L BUN 24 H Creatinine 1.0 Est GFR ( Amer) > 60 Est GFR (Non-Af Amer) 56 Random Glucose 276 H Calcium 9.0 Magnesium 1.3 L Total Bilirubin 1.0 AST 18 ALT 28 Alkaline Phosphatase 56 Lactate Dehydrogenase 305 L Total Creatine Kinase 63 Troponin I < 0.01 Total Protein 6.2 Albumin 3.6 Globulin 2.6 Albumin/Globulin Ratio 1.4 TSH 3rd Generation 11/09/18 09:38 WBC RBC Hgb Hct MCV MCH MCHC RDW Plt Count MPV Gran % Lymph % (Auto) Bureau % (Auto) Eos % (Auto) Baso % (Auto) Gran # Lymph # (Auto) Bureau # (Auto) Eos # (Auto) Baso # (Auto) PT INR APTT Sodium Potassium Chloride Carbon Dioxide Anion Gap BUN Creatinine Est GFR ( Amer) Est GFR (Non-Af Amer) Random Glucose Calcium Magnesium Total Bilirubin AST ALT Alkaline Phosphatase Lactate Dehydrogenase Total Creatine Kinase Troponin I Total Protein Albumin Globulin Albumin/Globulin Ratio [facility] 3rd Generation 3.90 Attending/Attestation - Attestation I have personally seen and examined this patient.: Yes I have fully participated in the care of the patient.: Yes I have reviewed all pertinent clinical information: Yes Notes (Text): 11/09/18 13:07 63 year old female with past medical history of CAD s/p stents, hypertension and diabetes who presents with complaint of chest pain. Will obtain serial cardiac enzymes to rule out ACS. Cardiology evaluation is requested. Continue with home medications including aspirin, plavix, metoprolol and statin. Paco Stephenson MD Hospitalist.
[2018-11-09] MEDS: Enoxaparin 80 mg Syringe SC SCH (14:09)
[2018-11-09 14:45] LABS: TROPONIN I < 0.01 ng/mL
[2018-11-09 17:44] LABS: TROPONIN I < 0.01 ng/mL
[2018-11-09] MEDS: Insulin Reg-MEDIUM-Coverage SC SCH ×2 (18:23→23:07)
[2018-11-09] MEDS: Magnesium Oxide 400 mg Tab UD PO SCH (18:25)
--- NOTE | 2018-11-09 20:23 | CARD ---
APPROVED REPORT Date of service: 11/09/2018 EKG Measurement Heart [id number] ID [id number] <Conclusion> Normal sinus rhythm Normal ECG
[2018-11-10 00:22] LABS: PH,URINE 6.5 (4.7-8.0); URINE BILIRUBIN NEGATIVE (NEGATIVE); URINE BLOOD NEGATIVE (NEGATIVE); URINE GLUCOSE (UA) NEGATIVE (NEGATIVE); URINE LEUKOCYTE ESTERASE MODERATE Leu/uL (NEGATIVE); URINE PROTEIN NEGATIVE mg/dL (<30 mg/dL); URINE UROBILINOGEN 0.2 E.U./dL (<1 E.U./dL)
[2018-11-10 00:25] LABS: URINE APPEARANCE CLEAR (CLEAR); URINE COLOR YELLOW (YELLOW)
[2018-11-10 00:40] LABS: URINE BACTERIA RARE /hpf; URINE RBC 0 - 2 /hpf (0-2)
[2018-11-10] MEDS: Enoxaparin 80 mg Syringe SC SCH (00:55)
--- NOTE | 2018-11-10 00:56 | CON ---
DATE: 11/09/2018 REASON FOR CONSULTATION: Cardiac evaluation, history of coronary artery disease, admitted with chest pain. BRIEF CLINICAL HISTORY: This is a 63-year-old female with past medical history of coronary artery disease status post stent to ostial LAD with KATH by me on 03/11/2014, came into the emergency room with complaint of dull pain, off and on for a couple of days, came to emergency room. Denies any chest pain now, denies any shortness of breath, denies any palpitation. PAST MEDICAL HISTORY: Significant for coronary artery disease; diabetes; hypertension; hyperlipidemia; history of stenting to LAD, ostial 03/11/2014; and obesity. SOCIAL HISTORY: Denies smoking. Denies any history of alcohol abuse. CURRENT MEDICATIONS: The patient is taking at home metformin 500 mg b.i.d., sucralfate 1 g daily, metoprolol tartrate 100 mg twice, lisinopril 20 mg daily, insulin, ferrous sulfate, Plavix 75 mg daily, atorvastatin 20 and aspirin 81 mg daily. ALLERGIES: NO KNOWN DRUG ALLERGIES. PREVIOUS CARDIAC WORKUP: As follows: The patient had a cardiac catheterization and a stent done 03/11/2014 to LAD. The patient says that a year ago had a stress test by Dr. Too Otto at [facility] and it was told okay. REVIEW OF SYSTEMS: As per HPI. PHYSICAL EXAMINATION: As follows, VITAL SIGNS: Height of the patient 5 feet 3 inches, weight of the patient 165 pounds. Body mass index 29.2 kg/m2. Rest of the vitals, temperature afebrile, heart rate and blood pressure 146/74. HEENT: PERRLA intact. NECK: Supple. No carotid bruits or thyromegaly. CHEST: Clear to auscultation. HEART: S1 and S2, regular. ABDOMEN: Soft. EXTREMITIES: Clubbing and cyanosis negative. LABORATORY DATA: Blood workup as follows, WBC 4, hemoglobin 11, hematocrit 34.1 and platelet count 161. Chemistry shows sodium 137, potassium 4.3, chloride 105, carbon dioxide 26, anion gap of 9, BUN 24, creatinine 1. Troponin 0.01, negative. IMPRESSION: A 63-year-old female with past medical history significant for coronary artery disease, status post percutaneous transluminal coronary angioplasty of left anterior descending, ostial on 03/11/2014; diabetes; hypertension; and hyperlipidemia, admitted with chest pain. Though the chest pain does not appear typical, but given multiple coronary artery disease, diabetes, hypertension, previous stent, suggest to follow serial CPK and troponin. If the troponin remains negative, we will do a stress test tomorrow, and if the troponin is positive, we can do a cardiac catheterization. Discussed with the patient and discussed with the patient's daughter. We will supplement potassium. We will get lipid profile, TSH and hemoglobin A1C. Further recommendation after cardiac catheterization. We will keep n.p.o. for a stress test tomorrow versus cardiac catheterization. Further recommendation depending upon serial CPK and troponin and as mentioned cardiac catheterization versus stress test. If CPK and troponin remain flat, then we will do a stress test in the morning, otherwise pursue a cardiac catheterization. Thank you Dr. Zarate for providing an opportunity in taking care of your patient, Karina Newberry. Zurdo Zuniga MD
[2018-11-10 01:36] LABS: TROPONIN I < 0.01 ng/mL
[2018-11-10 06:05] VITALS: O2SAT 100
[2018-11-10 07:58] LABS: HEMOGLOBIN 12.7 g/dL (12.0-16.0); MEAN CELL VOLUME 80.6 fl (80.0-105.0); MEAN CORPUSCULAR HEMOGLOBIN 26.2 pg (25.0-35.0); MEAN CORPUSCULAR HGB CONC 32.6 g/dl (31.0-37.0); MEAN PLATELET VOLUME 9.9 fl (7.0-11.0); RBC 4.84 10^6/uL (3.5-6.1); RED CELL DISTRIBUTION WIDTH 13.9 % (11.5-14.5); WHITE BLOOD COUNT 5.7 10^3/uL (4.5-11.0)
[2018-11-10 08:20] LABS: BLOOD UREA NITROGEN 22 mg/dL (7-21); GFR NON-AFRICAN AMERICAN 56; HDL CHOLESTEROL 59 mg/dL (29-60)
[2018-11-10 08:31] LABS: LDL CHOLESTEROL 70 mg/dL (0-129)
[2018-11-10] MEDS: Insulin Reg-MEDIUM-Coverage SC SCH (13:20)
[2018-11-10] MEDS: Magnesium Oxide 400 mg Tab UD PO SCH (13:21)
--- NOTE | 2018-11-10 14:08 | CP.PCM.DIS ---
<Gary Pastor - Last Filed: 11/10/18 16:06> Provider - Provider Date of Admission: 11/09/18 10:23 Attending physician: Anam Zarate MD Primary care physician: Belgica Gardiner Consults: 11/09/18 10:51 Physician Consult Routine Comment: Consulting Provider: Zurdo Zuniga Consulting Physician: Zurdo Zuniga Reason for Consult: chest pain; hx of cad/dm Time Spent in preparation of Discharge (in minutes): 35 Hospital Course - Lab Results Lab Results: Most Recent Lab Values WBC 5.7 10^3/uL (4.5-11.0) D 11/10/18 07:15 RBC 4.84 10^6/uL (3.5-6.1) 11/10/18 07:15 Hgb 12.7 g/dL (12.0-16.0) 11/10/18 07:15 Hct 39.0 % (36.0-48.0) 11/10/18 07:15 MCV 80.6 fl (80.0-105.0) 11/10/18 07:15 MCH 26.2 pg (25.0-35.0) 11/10/18 07:15 MCHC 32.6 g/dl (31.0-37.0) 11/10/18 07:15 RDW 13.9 % (11.5-14.5) 11/10/18 07:15 Plt Count 196 10^3/uL (120.0-450.0) 11/10/18 07:15 MPV 9.9 fl (7.0-11.0) 11/10/18 07:15 Gran % 46.6 % (50.0-68.0) L 11/09/18 09:38 Lymph % (Auto) 45.4 % (22.0-35.0) H 11/09/18 09:38 [place] % (Auto) 5.4 % (1.0-6.0) 11/09/18 09:38 Eos % (Auto) 2.2 % (1.5-5.0) 11/09/18 09:38 Baso % (Auto) 0.4 % (0.0-3.0) 11/09/18 09:38 Gran # 2.16 (1.4-6.5) 11/09/18 09:38 Lymph # (Auto) 2.1 (1.2-3.4) 11/09/18 09:38 [place] # (Auto) 0.3 (0.1-0.6) 11/09/18 09:38 Eos # (Auto) 0.1 (0.0-0.7) 11/09/18 09:38 Baso # (Auto) 0.02 K/mm3 (0.0-2.0) 11/09/18 09:38 PT 12.9 SECONDS (9.4-12.5) H 11/09/18 09:38 INR 1.12 11/09/18 09:38 APTT 26.4 Seconds (25.1-36.5) 11/09/18 09:38 Sodium 137 mmol/L (132-148) 11/10/18 07:15 Potassium 4.1 mmol/L (3.6-5.0) 11/10/18 07:15 Chloride 103 mmol/L (98-107) 11/10/18 07:15 Carbon Dioxide 27 mmol/L (21-33) 11/10/18 07:15 Anion Gap 11 (10-20) 11/10/18 07:15 BUN 22 mg/dL (7-21) H 11/10/18 07:15 Creatinine 1.0 mg/dl (0.7-1.2) 11/10/18 07:15 Est GFR ( Amer) > 60 11/10/18 07:15 Est GFR (Non-Af Amer) 56 11/10/18 07:15 POC Glucose (mg/dL) 168 mg/dL (65-110) H 11/10/18 07:17 Random Glucose 196 mg/dL (70-110) H 11/10/18 07:15 Hemoglobin A1c 7.5 % (4.2-6.5) H 11/09/18 09:38 Calcium 9.0 mg/dL (8.4-10.5) 11/10/18 07:15 Magnesium 1.7 mg/dL (1.7-2.2) 11/10/18 07:15 Total Bilirubin 1.0 mg/dL (0.2-1.3) 11/09/18 09:38 AST 18 U/L (14-36) 11/09/18 09:38 ALT 28 U/L (7-56) 11/09/18 09:38 Alkaline Phosphatase 56 U/L (38-126) 11/09/18 09:38 Lactate Dehydrogenase 289 U/L (333-699) L 11/10/18 01:00 Total Creatine Kinase 52 U/L (35-230) 11/10/18 01:00 Troponin I < 0.01 ng/mL 11/10/18 01:00 Total Protein 6.2 g/dL (5.8-8.3) 11/09/18 09:38 Albumin 3.6 g/dL (3.0-4.8) 11/09/18 09:38 Globulin 2.6 gm/dL 11/09/18 09:38 Albumin/Globulin Ratio 1.4 (1.1-1.8) 11/09/18 09:38 Triglycerides 139 mg/dL (35-160) 11/10/18 07:15 Cholesterol 149 mg/dL (130-200) 11/10/18 07:15 LDL Cholesterol Direct 70 mg/dL (0-129) 11/10/18 07:15 HDL Cholesterol 59 mg/dL (29-60) 11/10/18 07:15 TSH 3rd Generation 3.90 mIU/mL (0.46-4.68) 11/09/18 09:38 Urine Color Yellow (YELLOW) 11/09/18 23:00 Urine Appearance Clear (CLEAR) 11/09/18 23:00 Urine pH 6.5 (4.7-8.0) 11/09/18 23:00 Ur Specific [place] 1.010 (1.005-1.035) 11/09/18 23:00 Urine Protein Negative mg/dL (<30 mg/dL) 11/09/18 23:00 Urine Glucose (UA) Negative mg/dL (NEGATIVE) 11/09/18 23:00 Urine Ketones Negative mg/dL (NEGATIVE) 11/09/18 23:00 Urine Blood Negative (NEGATIVE) 11/09/18 23:00 Urine Nitrate Negative (NEGATIVE) 11/09/18 23:00 Urine Bilirubin Negative (NEGATIVE) 11/09/18 23:00 Urine Urobilinogen 0.2 E.U./dL (<1 E.U./dL) 11/09/18 23:00 Ur Leukocyte Esterase Moderate Shayy/uL (NEGATIVE) H 11/09/18 23:00 Urine RBC 0 - 2 /hpf (0-2) 11/09/18 23:00 Urine WBC 2 - 5 /hpf (0-6) 11/09/18 23:00 Ur Epithelial Cells 1 - 3 /hpf (0-5) 11/09/18 23:00 Urine Bacteria Rare /hpf (NONE) 11/09/18 23:00 - Hospital Course Hospital Course: Upon admission, 63yo F with past medical history of CAD s/p 2 stents, HTN, DM, GERD who comes to ED for chest pain x 1 day. Patient reports she is having constant L sided chest pain and pressure since last night. She was unable to sleep because of it. She denies any radiation down the arm or up the neck. It does not worsen with palpation. Patient states she took 2 aspirin yesterday without any relief. She states her is also sick at home and states she felt like she had a fever yesterday but did not check her temperature. She denies cough, shortness of breath, sore throat, nausea/vomiting/diarrhea, numbness/tingling, chills, vision changes, dysuria or hematuria. Patient does ad oma that she sometimes DOES NOT TAKE HER PLAVIX due to easy bruising. Her last stent was between 4851-3000. During hospital course, initial EKG showed NSR at 73bpm with no ST changes. Troponin x3 were unremarkable. CXR did not show acute pathology. CPK was unremarkable. Magnesium was low and was repleted. Lipid panel was WNL. She was afebrile and no WBC count present. TSH was WNL. She received an echo and a cardiac stress test. She agreed to follow up the results with Dr. Zuniga, automotive vehicle inspector within 5-7 days of discharge. Patient agreed with discharge and all of her questions were answered. She agreed to see her PCP within 5-7 days of discharge and stated she did not need any refills for her medications at this time including aspirin and plavix. Discharge Exam - Additional Findings Additional findings: - Constitutional Appears: No Acute Distress - Head Exam Head Exam: ATRAUMATIC, NORMAL INSPECTION, NORMOCEPHALIC - Eye Exam Eye Exam: EOMI, Normal appearance, PERRL Pupil Exam: NORMAL ACCOMODATION, PERRL - ENT Exam ENT Exam: Mucous Membranes Moist, Normal Oropharynx - Neck Exam Neck exam: Positive for: Normal Inspection. Negative for: Lymphadenopathy - Respiratory Exam Respiratory Exam: Clear to Auscultation Bilateral, NORMAL BREATHING PATTERN. absent: Rales, Rhonchi, Wheezes - Cardiovascular Exam Cardiovascular Exam: REGULAR RHYTHM, +S1, +S2. absent: Gallop, Rubs, Systolic Murmur - GI/Abdominal Exam GI & Abdominal Exam: Normal Bowel Sounds, Soft. absent: Mass, Rebound, Rigid, Tenderness - Extremities Exam Extremities exam: Positive for: full ROM, normal inspection. Negative for: calf tenderness, pedal edema - Neurological Exam Neurological exam: Alert, CN II-XII Intact, Oriented x3 - Psychiatric Exam Psychiatric exam: Normal Affect, Normal Mood - Skin Skin Exam: Dry, Intact, Normal Color, Warm Discharge Plan - Follow Up Plan Condition: STABLE Disposition: HOME/ ROUTINE Instructions: Cardiac Stress Test, Heart Healthy Diet, Chest Pain (DC) Additional Instructions: Please follow up with your primary care doctor within 5-7 days of discharge. Please follow up with your automotive vehicle inspector, Dr. Zuniga within 5-7 days of discharge. A referral has been given to you. Your automotive vehicle inspector will tell you the results of the heart test. Please continue your home medications as previously prescribed. As per our discussion, you do not need any refills at this time. Please return to the ED for any new or worsening symptoms. Referrals: Belgica Gardiner [Primary Care Provider] - Zurdo Zuniga MD [Staff Provider] - <Paco Stephenson - Last Filed: 11/10/18 16:17> Provider - Provider Date of Admission: 11/09/18 10:23 Attending physician: Anam Zarate MD Primary care physician: Belgica Gardiner Consults: 11/09/18 10:51 Physician Consult Routine Comment: Consulting Provider: Zurdo Zuniga Consulting Physician: Zurdo Zuniga Reason for Consult: chest pain; hx of cad/dm Hospital Course - Lab Results Lab Results: Most Recent Lab Values WBC 5.7 10^3/uL (4.5-11.0) D 11/10/18 07:15 RBC 4.84 10^6/uL (3.5-6.1) 11/10/18 07:15 Hgb 12.7 g/dL (12.0-16.0) 11/10/18 07:15 Hct 39.0 % (36.0-48.0) 11/10/18 07:15 MCV 80.6 fl (80.0-105.0) 11/10/18 07:15 MCH 26.2 pg (25.0-35.0) 11/10/18 07:15 MCHC 32.6 g/dl (31.0-37.0) 11/10/18 07:15 RDW 13.9 % (11.5-14.5) 11/10/18 07:15 Plt Count 196 10^3/uL (120.0-450.0) 11/10/18 07:15 MPV 9.9 fl (7.0-11.0) 11/10/18 07:15 Gran % 46.6 % (50.0-68.0) L 11/09/18 09:38 Lymph % (Auto) 45.4 % (22.0-35.0) H 11/09/18 09:38 [place] % (Auto) 5.4 % (1.0-6.0) 11/09/18 09:38 Eos % (Auto) 2.2 % (1.5-5.0) 11/09/18 09:38 Baso % (Auto) 0.4 % (0.0-3.0) 11/09/18 09:38 Gran # 2.16 (1.4-6.5) 11/09/18 09:38 Lymph # (Auto) 2.1 (1.2-3.4) 11/09/18 09:38 [place] # (Auto) 0.3 (0.1-0.6) 11/09/18 09:38 Eos # (Auto) 0.1 (0.0-0.7) 11/09/18 09:38 Baso # (Auto) 0.02 K/mm3 (0.0-2.0) 11/09/18 09:38 PT 12.9 SECONDS (9.4-12.5) H 11/09/18 09:38 INR 1.12 11/09/18 09:38 APTT 26.4 Seconds (25.1-36.5) 11/09/18 09:38 Sodium 137 mmol/L (132-148) 11/10/18 07:15 Potassium 4.1 mmol/L (3.6-5.0) 11/10/18 07:15 Chloride 103 mmol/L (98-107) 11/10/18 07:15 Carbon Dioxide 27 mmol/L (21-33) 11/10/18 07:15 Anion Gap 11 (10-20) 11/10/18 07:15 BUN 22 mg/dL (7-21) H 11/10/18 07:15 Creatinine 1.0 mg/dl (0.7-1.2) 11/10/18 07:15 Est GFR ( Amer) > 60 11/10/18 07:15 Est GFR (Non-Af Amer) 56 11/10/18 07:15 POC Glucose (mg/dL) 168 mg/dL (65-110) H 11/10/18 07:17 Random Glucose 196 mg/dL (70-110) H 11/10/18 07:15 Hemoglobin A1c 7.5 % (4.2-6.5) H 11/09/18 09:38 Calcium 9.0 mg/dL (8.4-10.5) 11/10/18 07:15 Magnesium 1.7 mg/dL (1.7-2.2) 11/10/18 07:15 Total Bilirubin 1.0 mg/dL (0.2-1.3) 11/09/18 09:38 AST 18 U/L (14-36) 11/09/18 09:38 ALT 28 U/L (7-56) 11/09/18 09:38 Alkaline Phosphatase 56 U/L (38-126) 11/09/18 09:38 Lactate Dehydrogenase 289 U/L (333-699) L 11/10/18 01:00 Total Creatine Kinase 52 U/L (35-230) 11/10/18 01:00 Troponin I < 0.01 ng/mL 11/10/18 01:00 Total Protein 6.2 g/dL (5.8-8.3) 11/09/18 09:38 Albumin 3.6 g/dL (3.0-4.8) 11/09/18 09:38 Globulin 2.6 gm/dL 11/09/18 09:38 Albumin/Globulin Ratio 1.4 (1.1-1.8) 11/09/18 09:38 Triglycerides 139 mg/dL (35-160) 11/10/18 07:15 Cholesterol 149 mg/dL (130-200) 11/10/18 07:15 LDL Cholesterol Direct 70 mg/dL (0-129) 11/10/18 07:15 HDL Cholesterol 59 mg/dL (29-60) 11/10/18 07:15 TSH 3rd Generation 3.90 mIU/mL (0.46-4.68) 11/09/18 09:38 Urine Color Yellow (YELLOW) 11/09/18 23:00 Urine Appearance Clear (CLEAR) 11/09/18 23:00 Urine pH 6.5 (4.7-8.0) 11/09/18 23:00 Ur Specific [place] 1.010 (1.005-1.035) 11/09/18 23:00 Urine Protein Negative mg/dL (<30 mg/dL) 11/09/18 23:00 Urine Glucose (UA) Negative mg/dL (NEGATIVE) 11/09/18 23:00 Urine Ketones Negative mg/dL (NEGATIVE) 11/09/18 23:00 Urine Blood Negative (NEGATIVE) 11/09/18 23:00 Urine Nitrate Negative (NEGATIVE) 11/09/18 23:00 Urine Bilirubin Negative (NEGATIVE) 11/09/18 23:00 Urine Urobilinogen 0.2 E.U./dL (<1 E.U./dL) 11/09/18 23:00 Ur Leukocyte Esterase Moderate Shayy/uL (NEGATIVE) H 11/09/18 23:00 Urine RBC 0 - 2 /hpf (0-2) 11/09/18 23:00 Urine WBC 2 - 5 /hpf (0-6) 11/09/18 23:00 Ur Epithelial Cells 1 - 3 /hpf (0-5) 11/09/18 23:00 Urine Bacteria Rare /hpf (NONE) 11/09/18 23:00 Attending/Attestation - Attestation I have personally seen and examined this patient.: Yes I have fully participated in the care of the patient.: Yes I have reviewed all pertinent clinical information, including history, physical exam and plan: Yes Notes (Text): 11/10/18 16:15 63 year old female with past medical history of CAD s/p stents, hypertension and diabetes who presented with complaint of chest pain. Serial cardiac enzymes were negative and ACS was rule out. Cardiology evaluation was appreciated and patient underwent stress test and echocardiogram today. Chest pain resolved. Patient is cleared for discharge by cardiology. Follow up with pmd and cardiology. Will call with echocardiogram / stress test results. Continue with home medications including aspirin, plavix, metoprolol and statin. Medication compliance was discussed with patient. Paco Stephenson MD Hospitalist.
[2018-11-10 15:45] VITALS: BP 125/75; RESP 18; TEMP 97.6
--- NOTE | 2018-11-10 17:08 | PN ---
DATE: 11/10/2018 REASON FOR CONSULTATION: Followup, cardiac evaluation, history of coronary artery disease, admitted with chest pain. SUBJECTIVE: The patient denies any chest pain, shortness of breath, or any palpitation, is scheduled for a stress test today. PHYSICAL EXAMINATION: VITAL SIGNS: Temperature afebrile, heart rate 66, and blood pressure 114/66. HEENT: PERRLA. Extraocular muscles intact. NECK: Supple. No carotid bruits or thyromegaly. CHEST: Clear to auscultation. HEART: S1 and S2, regular. ABDOMEN: Soft. EXTREMITIES: Clubbing and cyanosis negative. LABORATORY DATA: Blood workup as follows, WBC 5.7, hemoglobin 12.3, hematocrit 39, and platelet count 196. Chemistry shows sodium 137, potassium 4, chloride 103, carbon dioxide 27, anion gap of 11, BUN 22, and creatinine . Troponin remains flat 0.01 x3 negative. Triglyceride 137, total cholesterol 147, LDL 70, and HDL 59. IMPRESSION AND PLAN: A 63-year-old female with past medical history significant for coronary artery disease, status post percutaneous transluminal coronary angioplasty with stent on 03/11/2014; being followed by Dr. Too Otto at [facility], had a stress test at end of the last year, admitted with atypical chest pain, so far troponin has been negative. The patient is scheduled for a stress test. Further recommendation after the stress test and echo. In interim, continue aggressive medical treatment. The patient is a little bit noncompliant, off and on, taking medication, continue metoprolol, continue enoxaparin. No evidence of acute myocardial infarction. We will change to deep vein thrombosis dose. Continue Plavix. We will follow with stress test. Further recommendation after . We will follow with you. Thank you Dr. Zarate for providing an opportunity in taking care of your patient, Karina Newberry. Zurdo Zuniga MD
[2018-11-10 17:09] VITALS: PULSE 73
[2018-11-11] MEDS ORDERED: Enoxaparin 40 mg Syringe SC SCH (10:00)
--- NOTE | 2018-11-12 09:06 | CARD ---
APPROVED REPORT Date of service: 11/10/2018 EXAM: Two-dimensional and M-mode echocardiogram with Doppler and color Doppler. INDICATION Chest Pain 2D DIMENSIONS Left Atrium (2D)3.7 (1.6-4.0cm)IVSd1.1 (0.7-1.1cm) LVDd4.0 (3.9-5.9cm)PWd1.1 (0.7-1.1cm) LVDs2.7 (2.5-4.0cm)FS (%) 32.3 % LVEF (%)61.2 (>50%) M-Mode DIMENSIONS Aortic Root2.60 (2.2-3.7cm)Aortic Cusp Exc.1.60 (1.5-2.0cm) Aortic Valve AoV Peak Iqeboxwp766.0cm/Kati Peak GR.8mmHg Mitral Valve MV E Lqrmlmfo36.9cm/sMV A Rzzhglbr137.0cm/sE/A ratio0.7 TDI E/Lateral E'0.0E/Medial E'0.0 Tricuspid Valve TR Peak [id number]/sRAP [id number] Peak Gr.6mmHg [id number] LEFT VENTRICLE The left ventricle is normal size. The left ventricular function is normal. The left ventricular ejection fraction is within the normal range. LV Ej.Fr: 61%. RIGHT VENTRICLE The right ventricle is normal size. The right ventricular systolic function is normal. ATRIA The left atrium size is normal. The right atrium size is normal. AORTIC VALVE Aortic Valves Show Mild Increase in Thickness. Aortic Valve Opening Normal. MITRAL VALVE Mitral Annulus Calcified. Mitral Valve Opening Normal. TRICUSPID VALVE The tricuspid valve is normal in structure. There is trace tricuspid regurgitation. PERICARDIAL EFFUSION There is no pericardial effusion. <Conclusion> The left ventricle is normal size. The left ventricular Systolic function is normal. The left ventricular ejection fraction is within the normal range. LV Ej.Fr: 61%. LV Shows Moderate Diastolic Dysfunction. The right ventricle is normal size. The right ventricular systolic function is normal. The left atrium size is normal. The right atrium size is normal. Aortic Valve Leaflets Show Mild Increase in Thickness. Aortic Valve Opening Normal. Mitral Annulus Calcified. Mitral Valve Opening Normal. The tricuspid valve is normal in structure. There is trace tricuspid regurgitation. There is no pericardial effusion.
== END 2018-11-10 17:08 | disposition home or self-care (01) ==
LOC: ED 09:04 → ERH 10:23 → 2RNO 12:03
PROVIDERS: ADMIT Internal Medicine; ATTEND Internal Medicine
DX: R07.89 Other chest pain (principal); I25.10 Atherosclerotic heart disease of native coronary artery without angina pectoris; E11.9 Type 2 diabetes mellitus without complications; I10 Essential (primary) hypertension; K21.9 Gastro-esophageal reflux disease without esophagitis; Z95.5 Presence of coronary angioplasty implant and graft; D50.9 Iron deficiency anemia, unspecified; E78.5 Hyperlipidemia, unspecified; Z91.19 Patient's noncompliance with other medical treatment and regimen; Z98.84 Bariatric surgery status; Z96.651 Presence of right artificial knee joint; Z79.02 Long term (current) use of antithrombotics/antiplatelets; Z82.49 Family history of ischemic heart disease and other diseases of the circulatory system; Z83.3 Family history of diabetes mellitus
CPT/HCPCS: 36415; 71045; 80048; 80053; 80061; 81001; 82550; 82948; 83036; 83615; 83735; 84443; 84484; 85025; 85027; 85610; 85730; 93005; 93017; 93306; 96365; 99285; G0378; J1650